=== PATIENT | male | born 1930 | race Caucasian/White ===

== ENCOUNTER 2019-09-09 15:35 | Inpatient (IN) | payer MEDICARE ==
--- NOTE | 2019-09-09 16:00 | ED ---
General Adult HPI - General Source: RN notes reviewed <Timbo Uriostegui - Last Filed: 09/09/19 17:37> <Cristobal Brower - Last Filed: 09/09/19 22:16> - General Stated complaint: general weakness Time Seen by Provider: 09/09/19 15:36 - History of Present Illness Initial comments: 88-year-old male presents to the emergency department for a chief complaint of generalized weakness. Family members are at bedside and are giving additional history. Apparently over the past 2 weeks or so patient has had increase in falls. He has fallen 5 times in the past couple weeks. Patient states that he believes this is because of the swelling in his legs. States over the past several weeks the swelling has worsened. He denies any shortness of breath or chest pain associated with this. Feeling of her states that the goal is to improve the swelling and patient's legs so that he can have outpatient physical therapy. Family states that patient has not left his house and 2 months because he is unable to walk up and down the set of 15 stairs leading to his apartment.Patient has no other complaints at this time including shortness of breath, chest pain, abdominal pain, nausea or vomiting, headache, or visual changes. (Timbo Uriostegui) - Related Data Home Medications Medication Instructions Recorded Confirmed Furosemide [Lasix] 40 mg PO DAILY 09/09/19 09/09/19 Macular Vitamin [id number] 1 tab PO DAILY 09/09/19 09/09/19 Tablet Metoprolol Tartrate [Lopressor] 12.5 mg PO DAILY 09/09/19 09/09/19 Multivitamins, Thera [Multivitamin 1 tab PO DAILY 09/09/19 09/09/19 (formulary)] Potassium Chloride ER [K-Dur 10] 10 meq PO DAILY 09/09/19 09/09/19 Rivaroxaban [Xarelto] 15 mg PO W/SUPPER 09/09/19 09/09/19 Tamsulosin [Flomax] 0.4 mg PO HS 09/09/19 09/09/19 Viactiv [id number] 2 tab PO BID 09/09/19 09/09/19 Chewable Tablet Allergies Allergy/AdvReac Type Severity Reaction Status Date / Time No Known Allergies Allergy Verified 09/09/19 21:58 Review of Systems ROS Other: All systems not noted in ROS Statement are negative. <Timbo Uriostegui - Last Filed: 09/09/19 17:37> ROS Other: All systems not noted in ROS Statement are negative. <Cristobal Brower - Last Filed: 09/09/19 22:16> ROS Statement: Those systems with pertinent positive or pertinent negative responses have been documented in the HPI. General Exam General appearance: alert, in no apparent distress Head exam: Present: atraumatic, normocephalic, normal inspection Eye exam: Present: normal appearance, PERRL, EOMI. Absent: scleral icterus, conjunctival injection, periorbital swelling ENT exam: Present: normal exam, mucous membranes moist Neck exam: Present: normal inspection, full ROM. Absent: tenderness, meningismus, lymphadenopathy Respiratory exam: Present: normal lung sounds bilaterally. Absent: respiratory distress, wheezes, rales, rhonchi, stridor Cardiovascular Exam: Present: regular rate, normal rhythm, normal heart sounds. Absent: systolic murmur, diastolic murmur, rubs, gallop, clicks GI/Abdominal exam: Present: soft, normal bowel sounds. Absent: distended, tenderness, guarding, rebound, rigid Extremities exam: Present: pedal edema (Pitting edema noted of the bilateral lower extremities, no erythema or evidence for infection) Neurological exam: Present: alert, oriented X3, CN II-XII intact Psychiatric exam: Present: normal affect, normal mood <Timbo Uriostegui P - Last Filed: 09/09/19 17:37> Course <Cristobal Brower - Last Filed: 09/09/19 22:16> Vital Signs 09/09/19 09/09/19 09/09/19 15:50 16:58 17:15 Temperature 98.7 F 98.1 F Pulse Rate 65 62 77 Respiratory 20 14 19 Rate Blood Pressure 131/65 126/71 131/65 O2 Sat by Pulse 99 97 Oximetry 09/09/19 09/09/19 09/09/19 18:30 20:00 21:00 Temperature 98.4 F Pulse Rate 79 72 92 Respiratory 18 17 17 Rate Blood Pressure 130/63 138/71 140/75 O2 Sat by Pulse 99 98 98 Oximetry - Reevaluation(s) Reevaluation #1: 09/09/19 22:14 The patient was endorsed me at shift change. Pending labs and imaging. Imaging showed evidence of cardiomegaly 09/09/19 22:15 Showed evidence of dehydration. (Cristobal Brower) Reevaluation #2: 09/09/19 22:15 I did discuss findings with the patient and family members as well as Dr. morley are patient be admitted for evaluation of peripheral edema frequent falls [place] thrive (Cristobal Brower) EKG Findings - EKG Comments: EKG Findings:: Atrial fibrillation, ventricular rate 76, QRS ratio 144, QTC 492 <Timbo Uriostegui - Last Filed: 09/09/19 17:37> Medical Decision Making - Lab Data Result diagrams: 09/09/19 17:19 <Timbo Uriostegui - Last Filed: 09/09/19 17:37> - Lab Data Result diagrams: 09/09/19 17:19 09/09/19 17:19 <Cristobal Brower - Last Filed: 09/09/19 22:16> - Medical Decision Making EKG shows atrial fibrillation with a ventricular rate controlled at 76. Patient is anticoagulated on Xarelto and rate controlled on metoprolol. Chest x-ray shows new cardiac enlargement in comparison to the prior chest x-ray 2010. Urinalysis is unremarkable. I did attempt to ambulate patient. He is very weak. Requires a 2+ person assist to get out of bed. Fall Risk. Care was signed out to Dr. Brower at 5:30 PM pending laboratory evaluation as there was a delay in patient care obtaining blood draw. (Timbo Uriostegui) - Lab Data Lab Results 09/09/19 09/09/19 09/09/19 Range/Units 16:29 17:19 17:19 WBC 6.5 (3.8-10.6) k/uL RBC 4.04 L (4.30-5.90) m/uL Hgb 12.5 L (13.0-17.5) gm/dL Hct 37.1 L (39.0-53.0) % MCV 91.8 (80.0-100.0) fL MCH 31.1 (25.0-35.0) pg MCHC 33.8 (31.0-37.0) g/dL RDW 13.9 (11.5-15.5) % Plt Count 158 (150-450) k/uL Neutrophils % 62 % Lymphocytes % 27 % Monocytes % 6 % Eosinophils % 3 % Basophils % 0 % Neutrophils # 4.0 (1.3-7.7) k/uL Lymphocytes # 1.8 (1.0-4.8) k/uL Monocytes # 0.4 (0-1.0) k/uL Eosinophils # 0.2 (0-0.7) k/uL Basophils # 0.0 (0-0.2) k/uL PT (9.0-12.0) sec INR (<1.2) APTT (22.0-30.0) sec Sodium 132 L (137-145) mmol/L Potassium 4.6 (3.5-5.1) mmol/L Chloride 97 L (98-107) mmol/L Carbon Dioxide 27 (22-30) mmol/L Anion Gap 8 mmol/L BUN 23 H (9-20) mg/dL Creatinine 1.05 (0.66-1.25) mg/dL Est GFR (CKD-EPI)AfAm 73 (>60 ml/min/1.73 sqM) Est GFR (CKD-EPI)NonAf 64 (>60 ml/min/1.73 sqM) Glucose 104 H (74-99) mg/dL Plasma Lactic Acid Raffaele (0.7-2.0) mmol/L Calcium 10.1 (8.4-10.2) mg/dL Magnesium 1.8 (1.6-2.3) mg/dL Total Bilirubin 0.6 (0.2-1.3) mg/dL AST 21 (17-59) U/L ALT 13 L (21-72) U/L Alkaline Phosphatase 59 (38-126) U/L Troponin I (0.000-0.034) ng/mL NT-Pro-B Natriuret Pep pg/mL Total Protein 7.4 (6.3-8.2) g/dL Albumin 4.3 (3.5-5.0) g/dL TSH 3.220 (0.465-4.680) mIU/L Urine Color Light Yellow Urine Appearance Clear (Clear) Urine pH 7.0 (5.0-8.0) Ur Specific [place] 1.008 (1.001-1.035) Urine Protein Negative (Negative) Urine Glucose (UA) Negative (Negative) Urine Ketones Negative (Negative) Urine Blood Negative (Negative) Urine Nitrite Negative (Negative) Urine Bilirubin Negative (Negative) Urine Urobilinogen <2.0 (<2.0) mg/dL Ur Leukocyte Esterase Negative (Negative) 09/09/19 09/09/19 09/09/19 Range/Units 17:19 17:19 17:19 WBC (3.8-10.6) k/uL RBC (4.30-5.90) m/uL Hgb (13.0-17.5) gm/dL Hct (39.0-53.0) % MCV (80.0-100.0) fL MCH (25.0-35.0) pg MCHC (31.0-37.0) g/dL RDW (11.5-15.5) % Plt Count (150-450) k/uL Neutrophils % % Lymphocytes % % Monocytes % % Eosinophils % % Basophils % % Neutrophils # (1.3-7.7) k/uL Lymphocytes # (1.0-4.8) k/uL Monocytes # (0-1.0) k/uL Eosinophils # (0-0.7) k/uL Basophils # (0-0.2) k/uL PT 11.0 (9.0-12.0) sec INR 1.0 (<1.2) APTT 28.5 (22.0-30.0) sec Sodium (137-145) mmol/L Potassium (3.5-5.1) mmol/L Chloride (98-107) mmol/L Carbon Dioxide (22-30) mmol/L Anion Gap mmol/L BUN (9-20) mg/dL Creatinine (0.66-1.25) mg/dL Est GFR (CKD-EPI)AfAm (>60 ml/min/1.73 sqM) Est GFR (CKD-EPI)NonAf (>60 ml/min/1.73 sqM) Glucose (74-99) mg/dL Plasma Lactic Acid Raffaele 1.1 (0.7-2.0) mmol/L Calcium (8.4-10.2) mg/dL Magnesium (1.6-2.3) mg/dL Total Bilirubin (0.2-1.3) mg/dL AST (17-59) U/L ALT (21-72) U/L Alkaline Phosphatase (38-126) U/L Troponin I (0.000-0.034) ng/mL NT-Pro-B Natriuret Pep 1270 pg/mL Total Protein (6.3-8.2) g/dL Albumin (3.5-5.0) g/dL TSH (0.465-4.680) mIU/L Urine Color Urine Appearance (Clear) Urine pH (5.0-8.0) Ur Specific [place] (1.001-1.035) Urine Protein (Negative) Urine Glucose (UA) (Negative) Urine Ketones (Negative) Urine Blood (Negative) Urine Nitrite (Negative) Urine Bilirubin (Negative) Urine Urobilinogen (<2.0) mg/dL Ur Leukocyte Esterase (Negative) 09/09/19 Range/Units 17:19 WBC (3.8-10.6) k/uL RBC (4.30-5.90) m/uL Hgb (13.0-17.5) gm/dL Hct (39.0-53.0) % MCV (80.0-100.0) fL MCH (25.0-35.0) pg MCHC (31.0-37.0) g/dL RDW (11.5-15.5) % Plt Count (150-450) k/uL Neutrophils % % Lymphocytes % % Monocytes % % Eosinophils % % Basophils % % Neutrophils # (1.3-7.7) k/uL Lymphocytes # (1.0-4.8) k/uL Monocytes # (0-1.0) k/uL Eosinophils # (0-0.7) k/uL Basophils # (0-0.2) k/uL PT (9.0-12.0) sec INR (<1.2) APTT (22.0-30.0) sec Sodium (137-145) mmol/L Potassium (3.5-5.1) mmol/L Chloride (98-107) mmol/L Carbon Dioxide (22-30) mmol/L Anion Gap mmol/L BUN (9-20) mg/dL Creatinine (0.66-1.25) mg/dL Est GFR (CKD-EPI)AfAm (>60 ml/min/1.73 sqM) Est GFR (CKD-EPI)NonAf (>60 ml/min/1.73 sqM) Glucose (74-99) mg/dL Plasma Lactic Acid Raffaele (0.7-2.0) mmol/L Calcium (8.4-10.2) mg/dL Magnesium (1.6-2.3) mg/dL Total Bilirubin (0.2-1.3) mg/dL AST (17-59) U/L ALT (21-72) U/L Alkaline Phosphatase (38-126) U/L Troponin I 0.027 (0.000-0.034) ng/mL NT-Pro-B Natriuret Pep pg/mL Total Protein (6.3-8.2) g/dL Albumin (3.5-5.0) g/dL TSH (0.465-4.680) mIU/L Urine Color Urine Appearance (Clear) Urine pH (5.0-8.0) Ur Specific [place] (1.001-1.035) Urine Protein (Negative) Urine Glucose (UA) (Negative) Urine Ketones (Negative) Urine Blood (Negative) Urine Nitrite (Negative) Urine Bilirubin (Negative) Urine Urobilinogen (<2.0) mg/dL Ur Leukocyte Esterase (Negative) Disposition <Timbo Uriostegui - Last Filed: 09/09/19 17:37> <Cristobal Brower - Last Filed: 09/09/19 22:16> Clinical Impression: Frequent falls, Scalp hematoma, Failure to thrive in adult, Peripheral edema Disposition: ADMITTED IP TO THIS HOSP Condition: Fair Referrals: Eloise Ozuna MD [Primary Care Provider] - 1-2 days
[2019-09-09 16:48] LABS: Appearance,Urine Clear (Clear); Bilirubin,Urine Negative (Negative); Blood,Urine Negative (Negative); Color,Urine Light Yellow; Glucose,Urine (UA) Negative (Negative); Ketones,Urine Negative (Negative); Leukocyte Esterase,Urine Negative (Negative); Nitrite,Urine Negative (Negative); Protein,Urine Negative (Negative); Specific Gravity,Urine 1.008 (1.001-1.035); Urobilinogen,Urine <2.0 mg/dL (<2.0)
--- NOTE | 2019-09-09 17:05 | XR ---
EXAMINATION TYPE: XR chest 2V DATE OF EXAM: 09/09/2019 COMPARISON: 07/17/2011 HISTORY: Weakness and lower extremity edema TECHNIQUE: Frontal and lateral views of the chest are obtained. FINDINGS: There is no focal air space opacity, pleural effusion, or pneumothorax seen. Pulmonary per inflation with flattening of the diaphragms on the lateral view indicative of underlying COPD. The c ardiac silhouette size is enlarged, new from the prior 2010. Tortuosity of the descending thoracic ao rta is similar. The osseous structures are intact. Moderate multilevel degenerative change of the sp ine. IMPRESSION: 1. New cardiac enlargement in comparison to the prior of 2010. Echocardiogram could be considered. 2. COPD.
[2019-09-09 17:35] LABS: Basophils % (A) 0 %; Eosinophils # (A) 0.2 k/uL (0-0.7); Eosinophils % (A) 3 %; HCT 37.1 % (39.0-53.0); HGB 12.5 gm/dL (13.0-17.5); Lymphocytes # (A) 1.8 k/uL (1.0-4.8); Lymphocytes % (A) 27 %; MCH 31.1 pg (25.0-35.0); MCHC 33.8 g/dL (31.0-37.0); MCV 91.8 fL (80.0-100.0); Mean Platelet Volume 8.1; Monocytes # (A) 0.4 k/uL (0-1.0); Monocytes % (A) 6 %; Neutrophils % (A) 62 %; Platelet Count 158 k/uL (150-450); RBC 4.04 m/uL (4.30-5.90); RDW 13.9 % (11.5-15.5); WBC 6.5 k/uL (3.8-10.6)
[2019-09-09 17:45] LABS: Partial Thromboplastin Time 28.5 sec (22.0-30.0)
[2019-09-09 17:53] LABS: Albumin 4.3 g/dL (3.5-5.0); Calcium 10.1 mg/dL (8.4-10.2); Magnesium 1.8 mg/dL (1.6-2.3); Potassium 4.6 mmol/L (3.5-5.1); Total Bilirubin 0.6 mg/dL (0.2-1.3); Total Protein 7.4 g/dL (6.3-8.2)
--- NOTE | 2019-09-09 22:26 | CT ---
EXAMINATION TYPE: CT brain wo con DATE OF EXAM: 09/09/2019 COMPARISON: None HISTORY: fall, ams, weakness CT DLP: 1105.4 mGycm Automated exposure control for dose reduction was used. There is some effacement and mass effect upon the left lateral ventricle. There is destructive change s involving the left parietal bone with subcutaneous mass extension outside of the skull as well as a pparent mass extension into the brain. This could be a metastatic lesion of the skull with intracrani al and extracranial extension. There is diffuse atrophy. There is some apparent vasogenic edema around the left lateral ventricle wh ich is effaced. The cerebellum is intact. I see no sign of intracranial hemorrhage. 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 Mass extension in the left parietal lobe measures up to 2 cm in thickness. The extracranial mass ext ension is 2.5 cm in thickness. Contrast CT scan or MR scan would be helpful for further evaluation to better characterize the lesion. Exam was discussed with Dr. Brower at 11:20 PM.
[2019-09-09] MEDS ORDERED: HYDROmorphone 1 MG/ML 1 ML SYRINGE IVP STA (23:56)
[2019-09-09] MEDS ORDERED: HYDROmorphone 0.5 MG/0.5 ML SYRINGE IVP PRN (23:57)
[2019-09-09] MEDS ORDERED: ONDANSETRON 4 MG/2 ML VIAL IVP PRN (23:57)
[2019-09-09] MEDS ORDERED: NALOXONE 0.4 MG/ML 1 ML VIAL IV PRN (23:57)
[2019-09-10] MEDS: SODIUM CHLORIDE 0.9% 1,000 ML IV SCH ×2 (00:34→12:26)
[2019-09-10] MEDS: MULTIVITAMINS, THERA 1 EACH TAB PO SCH (07:22)
[2019-09-10] MEDS: POTASSIUM CHLORIDE ER 10 MEQ TAB.ER.PRT PO SCH (07:22)
[2019-09-10] MEDS: METOPROLOL TARTRATE 12.5 MG TAB PO SCH (07:22)
[2019-09-10] MEDS: FUROSEMIDE 40 MG TAB PO SCH (07:22)
[2019-09-10] MEDS: VIT A,C & E-LUTEIN-MINERALS 1 EACH TAB PO SCH (07:22)
--- NOTE | 2019-09-10 07:48 | P.HPIM ---
History of Present Illness H&P Date: 09/10/19 Chief Complaint: Weakness and multiple falls Grayson Landry is an 88-year-old male who presented to [facility] emergency room with a chief complaint of weakness and multiple falls, he states that he had fallen 5 times in the last 2 weeks, EMS had to be called repeatedly because he was unable to get up and his was unable to help him, patient was also having difficulty getting in and out of his apartment due to having to go up 15 stairs, he noticed that he started having lower extremity swelling in the last few weeks , yesterday his son was visiting him and he was worried about his condition and decided to send him to emergency room for evaluation. Patient was evaluated in the emergency room, chest x-ray revealed evidence of cardiac enlargement which is new from previous evaluation, patient has a lump on the left side of the back of his head which she related to falling and hitting his head in the past however computed tomography scan of the brain was done in the emergency room and revealed evidence of mass with bony destruction. Patient was admitted to medical floor for further evaluation and treatment. On review of systems: Patient is alert and oriented 3, answering questions appropriately There is no fever or chills, he denies any headache or dizziness There is no chest pain or shortness of breath no cough, no hemoptysis No nausea or vomiting no abdominal pain no diarrhea no blood in the stools No burning with urination no frequency or urgency no hematuria Patient is complaining of generalized weakness and multiple falls, and difficulty ambulating and going upstairs, however he denies any weakness or numbness in one of his extremities more than the other, he denies any change in his vision or his speech. Past Medical History Past Medical History: Atrial Fibrillation, Prostate Disorder, Skin Disorder Additional Past Medical History / Comment(s): BPH; CARDIAC DYSRHTYMIA NOS; CERVICAL RADICULOPATHY; ROSACEA; BENIGN ESSENTIAL HYPERTENSION; ATRIAL FIBRILL ATION; MICROSCOPIC HEMATURIA; SEE CHART REPORT FROM [facility]. History of Any Multi-Drug Resistant Organisms: None Reported Past Surgical History: Orthopedic Surgery Additional Past Surgical History / Comment(s): left ankle fx repair, cataract removal Past Anesthesia/Blood Transfusion Reactions: No Reported Reaction Past Psychological History: No Psychological Hx Reported Smoking Status: Never smoker Past Alcohol Use History: None Reported Past Drug Use History: None Reported - Past Family History Father Family Medical History: Prostate Disorder Additional Family Medical History / Comment(s): MALIGNANT TUMOR OF PROSTATE Mother Family Medical History: Diabetes Mellitus Additional Family Medical History / Comment(s): DM II Medications and Allergies Home Medications Medication Instructions Recorded Confirmed Type Furosemide [Lasix] 40 mg PO DAILY 09/09/19 09/09/19 History Macular Vitamin [id number] 1 tab PO DAILY 09/09/19 09/09/19 History Tablet Metoprolol Tartrate [Lopressor] 12.5 mg PO DAILY 09/09/19 09/09/19 History Multivitamins, Thera [Multivitamin 1 tab PO DAILY 09/09/19 09/09/19 History (formulary)] Potassium Chloride ER [K-Dur 10] 10 meq PO DAILY 09/09/19 09/09/19 History Rivaroxaban [Xarelto] 15 mg PO W/SUPPER 09/09/19 09/09/19 History Tamsulosin [Flomax] 0.4 mg PO HS 09/09/19 09/09/19 History Viactiv [id number] 2 tab PO BID 09/09/19 09/09/19 History Chewable Tablet Allergies Allergy/AdvReac Type Severity Reaction Status Date / Time No Known Allergies Allergy Verified 09/09/19 21:58 Physical Exam Vitals: Vital Signs Temp Pulse Pulse Resp BP BP Pulse Ox 09/10/19 01:58 97.4 F L 65 17 118/60 96 09/10/19 01:03 16 09/10/19 00:30 98.6 F 71 18 136/67 94 L 09/10/19 00:00 98.6 F 71 18 136/67 94 L 09/09/19 23:00 98.2 F 68 18 136/67 97 09/09/19 22:00 91 15 140/75 99 09/09/19 21:00 98.4 F 92 17 140/75 98 09/09/19 20:00 72 17 138/71 98 09/09/19 18:30 79 18 130/63 99 09/09/19 17:15 98.1 F 77 19 131/65 97 09/09/19 16:58 62 14 126/71 09/09/19 15:50 98.7 F 65 20 131/65 99 Intake and Output 09/09/19 09/10/19 09/10/19 22:59 06:59 14:59 Intake Total 50 Output Total 400 Balance -350 Intake: Amount of Fluid Infused ( 50 ml) Output: Urine 400 Other: # Voids 1 Weight 113.398 kg 113.4 kg In general patient is alert and oriented 3 in no apparent distress answering questions appropriately HEENT head normocephalic and atraumatic Neck is supple no JVD no goiter no lymphadenopathy Chest exam reveals a few scattered rhonchi no wheezing Cardiac exam reveals regular heart sounds S1 and S2 no gallops no murmurs Abdomen is soft nontender no hepatosplenomegaly with normal bowel sounds Extremity exam reveals 1+ edema bilaterally no cyanosis or clubbing Neurological examination reveals generalized weakness but no gross focal deficit Results CBC & Chem 7: 09/09/19 17:19 09/09/19 17:19 Labs: Abnormal Lab Results - Last 24 Hours (Table) 09/09/19 09/09/19 Range/Units 17:19 17:19 RBC 4.04 L (4.30-5.90) m/uL Hgb 12.5 L (13.0-17.5) gm/dL Hct 37.1 L (39.0-53.0) % Sodium 132 L (137-145) mmol/L Chloride 97 L (98-107) mmol/L BUN 23 H (9-20) mg/dL Glucose 104 H (74-99) mg/dL ALT 13 L (21-72) U/L Thrombosis Risk Factor Assmnt - Choose All That Apply Any of the Below Risk Factors Present?: Yes Each Factor Represents 1 point: Obesity (BMI >25), Swollen legs (current) Other Risk Factors: No Other congenital or acquired thrombophilia - If yes, enter type in comment: No Thrombosis Risk Factor Assessment Total Risk Factor Score: 2 Thrombosis Risk Factor Assessment Level: Low Risk Assessment and Plan Plan: #1 generalized weakness with multiple falls #2 evidence of mild dehydration with elevated BUN at 23 and creatinine at 1.05 #3 evidence of 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 #4 evidence of cardiomegaly on chest x-ray, which is new from before, BNP was mildly elevated at 1270 patient states that he started having lower extremity swelling in the last few weeks at this time will check echocardiogram, continue with oral Lasix. #5 underlying history of atrial fibrillation, heart rate is well-controlled on metoprolol, patient was maintained on Xarelto for stroke prevention, at this time Xarelto is on hold due to multiple falls and due to intracranial finding, will reassess restarting anticoagulation once the clinical picture is clear. #6 underlying history of benign prostatic hypertrophy maintained on Flomax continue. At this time patient is admitted to medical floor Will obtain echocardiogram to assess cardiac function and optimize cardiac medications Neurology consultation and oncology consultation requested in regard to intracranial and extracranial mass Will assess need for further imaging, will follow closely Prognosis is guarded due to clinical findings and advanced age.
[2019-09-10] MEDS: DEXAMETHASONE SOD PHOSPHATE 4 MG/ML 1 ML VIAL IV SCH ×2 (11:25→16:23)
[2019-09-10] MEDS: IOPAMIDOL CONTRAST (ORAL USE) VIAL PO PRN ×2 (12:26→12:55)
--- NOTE | 2019-09-10 14:12 | NM ---
EXAMINATION TYPE: NM bone scan whole body DATE OF EXAM: 09/10/2019 COMPARISON: CT brain dated 09/09/2019 HISTORY: Left scalp lesion Delayed whole-body scanning was performed following the injection of 20.1 mCi Tc 99m MDP. Images acq uired 3.5 hours post injection. FINDINGS: There is focal uptake of the destructive left parietal mass as seen on the prior CT of 09/09/2019 as well as within the lateral right 7th rib and posterior left 11th rib. Degenerative change of the shoulders, knees, ankles, and spine as well as sacroiliac joints are seen as mild diffuse overall symmetric uptake. IMPRESSION: 1. The destructive left parietal mass seen on the prior CT of 09/09/2019 has abnormal uptake on bone scan. 2. Abnormal radiotracer foci within the lateral right 7th rib and posterior left 11th rib. These are nonspecific and could relate to focal lesions or rib fractures. No discrete rib fracture seen on the prior chest x-ray. CT chest could further assess this finding.
--- NOTE | 2019-09-10 15:01 | CT ---
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 CT DLP: 2460.1 mGycm CONTRAST: CT scan of the chest, abdomen and pelvis is performed with Oral Contrast and with IV Contrast, patien t injected with 100 mL of Isovue 300. CT Chest: LUNGS: The lungs are clear and free of infiltrate or atelectasis. Mild basilar parenchymal scarring. No pulmonary nodule or mass is detected. No pleural effusion or CT evidence of interstitial lung di sease. MEDIASTINUM: Thoracic aorta is of normal caliber. The heart is enlarged. No evidence for mediastin al mass or adenopathy. HILAR STRUCTURES: No evidence for mass. No hilar adenopathy is appreciated. OTHER: No significant abnormality. CONTRAST CT ABDOMEN AND PELVIS FINDINGS: LIVER/GB: No calcified gallstones. No space occupying hepatic lesion. Biliary tree is of normal ca liber. PANCREAS: No inflammation. No distinct mass. SPLEEN: No splenic enlargement. No lesion seen. Splenic granulomas identified. ADRENALS: No nodule. No thickening. KIDNEYS/BLADDER: No hydronephrosis. No nephrolithiasis. Simple cyst posterior midpole right kidney measuring 3.3 cm. No solid renal lesions identified at this time. BOWEL: Normal appendix. Normal bowel caliber. No inflammation. GENITAL ORGANS: Prostate gland is enlarged and measures 7.4 x 7.8 cm. LYMPH NODES: No greater than 1cm abdominal or pelvic lymph nodes are appreciated. AORTA: No significant abnormality. OSSEOUS STRUCTURES: Severe degenerative change at multiple levels. OTHER: No significant additional abnormality is seen. IMPRESSION: 1. No evidence for primary malignancy within the chest abdomen or pelvis at this time.
--- NOTE | 2019-09-10 16:10 | ECHOF ---
Referral Reason:cardiomegaly, lower ext. edema MEASUREMENTS -------- HEIGHT: 180.3 cm WEIGHT: 113.4 kg BP: RVIDd: 3.1 cm (< 3.3) IVSd: 1.3 cm (0.6 - 1.1) LVIDd: 5.0 cm (3.9 - 5.3) LVPWd: 1.4 cm (0.6 - 1.1) IVSs: 1.9 cm LVIDs: 3.9 cm LVPWs: 1.3 cm LAESV Index (A-L): 23.86 ml/m Ao Diam: 3.6 cm (2.0 - 3.7) AV Cusp: 2.5 cm (1.5 - 2.6) LA Diam: 4.1 cm (2.7 - 3.8) MV EXCURSION: 17.701 mm (> 18.000) MV EF SLOPE: 61 mm/s (70 - 150) EPSS: 0.7 cm RAP: 15.00 mmHg RVSP: 24.73 mmHg FINDINGS -------- Atrial fibrillation. This was a technically adequate study. The left ventricular size is normal. There is mild concentric left ventricular hypertrophy. Overa ll left ventricular systolic function is low-normal with, an EF between 50 - 55 %. Left ventricular fillimg pressure cannot be estimated due to Atrial fibrillation. The right ventricle is normal in size. The left atrial size is normal. The right atrial size is normal. The aortic valve is trileaflet and appears structurally normal. There is mild aortic regurgitation. The mitral valve is normal. There is trace mitral regurgitation. The tricuspid valve appears structurally normal. Mild tricuspid regurgitation present. Right vent ricular systolic pressure is normal at < 35 mmHg. There is no pulmonic regurgitation present. The aortic root size is normal. The inferior vena cava is mildly dilated. There is no pericardial effusion. CONCLUSIONS -------- 1. Atrial fibrillation. 2. This was a technically adequate study. 3. The left ventricular size is normal. 4. There is mild concentric left ventricular hypertrophy. 5. Overall left ventricular systolic function is low-normal with, an EF between 50 - 55 %. 6. Left ventricular fillimg pressure cannot be estimated due to Atrial fibrillation. 7. The right ventricle is normal in size. 8. The left atrial size is normal. 9. The right atrial size is normal. 10. The aortic valve is trileaflet and appears structurally normal. 11. There is mild aortic regurgitation. 12. The mitral valve is normal. 13. There is trace mitral regurgitation. 14. The tricuspid valve appears structurally normal. 15. Mild tricuspid regurgitation present. 16. Right ventricular systolic pressure is normal at < 35 mmHg. 17. There is no pulmonic regurgitation present. 18. The aortic root size is normal. 19. The inferior vena cava is mildly dilated. 20. There is no pericardial effusion. LAY OUT TECHNICIAN: Gertrude Colon RDCS
--- NOTE | 2019-09-10 16:51 | P.CNNES ---
History of Present Illness Consult date: 09/10/19 Requesting physician: Eloise Ozuna Reason for Consult: Brain mass History of Present Illness: Patient is a 88-year-old male who states has always been very healthy, until 2-3 weeks ago, when he started noticing significant peripheral edema involving bilateral lower limbs. He was also feeling generalized weakness, difficulty with ambulation as a result of leg swelling. His son decided to bring him to the hospital. Patient also mentions that he has developed a lump on the left posterior side of his head, which has been growing slowly, since it was noticed first couple years ago. He states that he has suffered from multiple, minor head injuries in the past, while getting in and out of his car, and presumed it was from the head trauma. Patient has atrial fibrillation and is on Xarelto. Patient underwent chest x-ray, which revealed new cardiac enlargement in comparison to the prior chest x-ray from 2010. COPD. Computed tomography scan of the head showed intracranial and extracranial mass extension with associated distractive lesion of the left parietal bone. I would consider possibility of a malignant meningioma as well as osseous metastatic disease. Mass extension in the left parietal lobe measuring up to 2 cm in thickness. The extracranial mass extension is 2.5 cm in thickness. Contrast computed tomography scan or MRI scan would be helpful for further evaluation to better characterize the lesion. Patient had a 2-D echo, which revealed atrial fibrillation. Left-ventricular systolic function is low normal with EF 50-55%. Left atrial size is normal. Aortic root is normal. EKG showed atrial fibrillation with right bundle branch block. Patient had a bone scan, which revealed the distractive left parietal mass seen on the prior CT of 09/09/2019 has abnormal uptake on bone scan. Ab normal radiotracer foci within the lateral right seventh rib and posterior left 11th rib. These are nonspecific and could relate to focal lesions or fractures. No discrete refracture seen on prior chest x-ray. CT chest could further assess this finding. Patient had a computed tomography scan of chest abdomen and pelvis, which was negative for primary malignancy within the chest abdomen or pelvis. Past Medical History Past Medical History: Atrial Fibrillation, Prostate Disorder, Skin Disorder Additional Past Medical History / Comment(s): BPH; CARDIAC DYSRHTYMIA NOS; CERVICAL RADICULOPATHY; ROSACEA; BENIGN ESSENTIAL HYPERTENSION; ATRIAL FIBRILLATION; MICROSCOPIC HEMATURIA; SEE CHART REPORT FROM [facility]. History of Any Multi-Drug Resistant Organisms: None Reported Past Surgical History: Orthopedic Surgery Additional Past Surgical History / Comment(s): left ankle fx repair, cataract removal Past Anesthesia/Blood Transfusion Reactions: No Reported Reaction Past Psychological History: No Psychological Hx Reported Smoking Status: Never smoker Past Alcohol Use History: None Reported Past Drug Use History: None Reported - Past Family History Father Family Medical History: Prostate Disorder Additional Family Medical History / Comment(s): MALIGNANT TUMOR OF PROSTATE Mother Family Medical History: Diabetes Mellitus Additional Family Medical History / Comment(s): DM II Medications and Allergies Home Medications Medication Instructions Recorded Confirmed Type Furosemide [Lasix] 40 mg PO DAILY 09/09/19 09/09/19 History Macular Vitamin [id number] 1 tab PO DAILY 09/09/19 09/09/19 History Tablet Metoprolol Tartrate [Lopressor] 12.5 mg PO DAILY 09/09/19 09/09/19 History Multivitamins, Thera [Multivitamin 1 tab PO DAILY 09/09/19 09/09/19 History (formulary)] Potassium Chloride ER [K-Dur 10] 10 meq PO DAILY 09/09/19 09/09/19 History Rivaroxaban [Xarelto] 15 mg PO W/SUPPER 09/09/19 09/09/19 History Tamsulosin [Flomax] 0.4 mg PO HS 09/09/19 09/09/19 History Viactiv [id number] 2 tab PO BID 09/09/19 09/09/19 History Chewable Tablet Allergies Allergy/AdvReac Type Severity Reaction Status Date / Time No Known Allergies Allergy Verified 09/09/19 21:58 Physical Examination - Vital Signs Vital Signs: Vital Signs Temp Pulse Pulse Pulse Resp BP BP 09/10/19 15:00 97.6 F 94 17 123/78 09/10/19 14:45 90 16 132/74 09/10/19 14:30 92 16 127/80 09/10/19 14:15 90 16 143/74 09/10/19 08:00 90 09/10/19 07:00 95.9 F L 90 18 153/74 09/10/19 01:58 97.4 F L 65 17 118/60 09/10/19 01:03 16 09/10/19 00:30 98.6 F 71 18 136/67 09/10/19 00:00 98.6 F 71 18 136/67 09/09/19 23:00 98.2 F 68 18 136/67 09/09/19 22:00 91 15 140/75 09/09/19 21:00 98.4 F 92 17 140/75 09/09/19 20:00 72 17 138/71 09/09/19 18:30 79 18 130/63 09/09/19 17:15 98.1 F 77 19 131/65 09/09/19 16:58 62 14 126/71 Pulse Ox 09/10/19 15:00 99 09/10/19 14:45 99 09/10/19 14:30 99 09/10/19 14:15 98 09/10/19 08:00 09/10/19 07:00 99 09/10/19 01:58 96 09/10/19 01:03 09/10/19 00:30 94 L 09/10/19 00:00 94 L 09/09/19 23:00 97 09/09/19 22:00 99 09/09/19 21:00 98 09/09/19 20:00 98 09/09/19 18:30 99 09/09/19 17:15 97 09/09/19 16:58 Intake and Output 09/10/19 09/10/19 09/10/19 06:59 14:59 22:59 Intake Total 50 354 Output Total 400 710 Balance -350 -356 Intake: Amount of Fluid Infused ( 50 ml) Oral 354 Output: Urine 400 710 Other: # Voids 1 3 Weight 113.4 kg On examination patient is an elderly male, very pleasant, in no distress. Patient is alert and awake. Patient knows that he is in [facility] in [facility]. He states that he was born in [facility]. He knows name of the current president although thinks it is March and the year is "97". He states that he is 89 years of age. Speech and language functions are normal. He can name objects well, can repeat. Attention and concentration fund of knowledge is adequate. On cranial nerve examination pupils are small, round and barely reacting. Extraocular muscles are intact with no nystagmus. Patient has right visual field neglect/cut on double simultaneous stimulation. Face is symmetric and tongue protrudes the midline. On muscle strength testing patient has very mild right pronation. The strength appears normal in the arms and legs. Patient has very significant pitting type of peripheral edema. There is no ataxia for [id number]. Tone and bulk of muscles normal. Sensations are equal with no neglect on double simultaneous stimulation. Results UA negative for infection. - Laboratory Findings CBC and BMP: 09/09/19 17:19 12 17:19 Abnormal Lab Findings: Abnormal Labs 09/09/19 12 17:19 17:19 RBC 4.04 L Hgb 12.5 L Hct 37.1 L Sodium 132 L Chloride 97 L BUN 23 H Glucose 104 H ALT 13 L Assessment and Plan Assessment: * 88-year-old male admitted with left posterior parietal extracranial and intracranial (extra-axial) mass with bony destruction of the associated parietal bone, and compression of mass into the parietal lobe. Possibility include malignant meningioma versus myeloma. No evidence of metastatic disease noted on the CT of chest abdomen and pelvis. * Bilateral lower extremity edema. Plan: * Patient had undergone biopsy of the scalp lesion. * We will check an MRI of the brain with and without contrast for further evaluation of this lesion, and rule out any other smaller deposits, that may not be visible on the regular CT head. On my review of the computed tomography scan, appears extra-axial lesion pressing on the brain parenchyma, probably a meningioma. * Oncology consultation. * Agree with checking serum protein and immunofixation electrophoresis. * Patient probably will need neurosurgical consultation. * We will follow.
[2019-09-10 17:06] LABS: Protein, Total 6.7 g/dL (6.2-8.2)
[2019-09-10] MEDS: TAMSULOSIN 0.4 MG CAP.ER.24H PO SCH (19:56)
--- NOTE | 2019-09-10 22:48 | P.CONS ---
History of Present Illness - Reason for Consult Consult date: 09/10/19 Destructive scalp lesion. Falls - History of Present Illness The patient is an 88-year-old white male with overall well-controlled medical problems. The patient's family brought him in due to progressive weakness, difficulty walking and falls especially over the last 2-3 weeks. The patient also endorsed having problems with increased forgetfulness. He had a CT of the brain done in the emergency room revealing a left soft tissue scalp lesion involving the right occipital area, causing bony destruction with invasion into the cranium and mass effect on the adjacent brain tissue. Consult was therefore placed for further evaluation and recommendation The patient denied any history of cancer. He states that he has had a lump on his scalp in that area for at least a year but thinks it may have grown somewhat in size over the past few months. Review of Systems Constitutional: Reports weakness Eyes: denies blurred vision, denies pain Ears: deny: decreased hearing, ear discharge, earache, tinnitus Ears, nose, mouth and throat: Denies headache, Denies sore throat Cardiovascular: Denies chest pain, Denies shortness of breath Respiratory: Denies cough Gastrointestinal: Denies abdominal pain, Denies diarrhea, Denies nausea, Denies vomiting Genitourinary: Reports urinary frequency, Reports urinary hesitancy Musculoskeletal: Reports muscle weakness, Denies myalgias Integumentary: Reports lesions Neurological: Reports as per HPI, Reports gait dysfunction, Reports memory loss, Reports weakness Psychiatric: Reports difficulty concentrating Endocrine: Reports fatigue Hematologic/Lymphatic: Reports as per HPI Past Medical History Past Medical History: Atrial Fibrillation, Prostate Disorder, Skin Disorder Additional Past Medical History / Comment(s): BPH; CARDIAC DYSRHTYMIA NOS; CERVICAL RADICULOPATHY; ROSACEA; BENIGN ESSENTIAL HYPERTENSION; ATRIAL FIBRILLATION; MICROSCOPIC HEMATURIA; SEE CHART REPORT FROM [facility] OFFICE. History of Any Multi-Drug Resistant Organisms: None Reported Past Surgical History: Orthopedic Surgery Additional Past Surgical History / Comment(s): left ankle fx repair, cataract removal Past Anesthesia/Blood Transfusion Reactions: No Reported Reaction Past Psychological History: No Psychological Hx Reported Smoking Status: Never smoker Past Alcohol Use History: None Reported Past Drug Use History: None Reported - Past Family History Father Family Medical History: Prostate Disorder Additional Family Medical History / Comment(s): MALIGNANT TUMOR OF PROSTATE Mother Family Medical History: Diabetes Mellitus Additional Family Medical History / Comment(s): DM II Medications and Allergies Home Medications Medication Instructions Recorded Confirmed Type Furosemide [Lasix] 40 mg PO DAILY 09/09/19 09/09/19 History Macular Vitamin [id number] 1 tab PO DAILY 09/09/19 09/09/19 History Tablet Metoprolol Tartrate [Lopressor] 12.5 mg PO DAILY 09/09/19 09/09/19 History Multivitamins, Thera [Multivitamin 1 tab PO DAILY 09/09/19 09/09/19 History (formulary)] Potassium Chloride ER [K-Dur 10] 10 meq PO DAILY 09/09/19 09/09/19 History Rivaroxaban [Xarelto] 15 mg PO W/SUPPER 09/09/19 09/09/19 History Tamsulosin [Flomax] 0.4 mg PO HS 09/09/19 09/09/19 History Viactiv [id number] 2 tab PO BID 09/09/19 09/09/19 History Chewable Tablet Allergies Allergy/AdvReac Type Severity Reaction Status Date / Time No Known Allergies Allergy Verified 09/09/19 21:58 Physical Exam Vitals: Vital Signs Temp Pulse Pulse Pulse Resp BP BP 09/10/19 19:50 97.6 F 86 18 126/72 09/10/19 15:00 97.6 F 94 17 123/78 09/10/19 14:45 90 16 132/74 09/10/19 14:30 92 16 127/80 09/10/19 14:15 90 16 143/74 09/10/19 08:00 90 09/10/19 07:00 95.9 F L 90 18 153/74 09/10/19 01:58 97.4 F L 65 17 118/60 09/10/19 01:03 16 09/10/19 00:30 98.6 F 71 18 136/67 09/10/19 00:00 98.6 F 71 18 136/67 09/09/19 23:00 98.2 F 68 18 136/67 Pulse Ox 09/10/19 19:50 98 09/10/19 15:00 99 09/10/19 14:45 99 09/10/19 14:30 99 09/10/19 14:15 98 09/10/19 08:00 09/10/19 07:00 99 09/10/19 01:58 96 09/10/19 01:03 09/10/19 00:30 94 L 09/10/19 00:00 94 L 09/09/19 23:00 97 Intake and Output 09/10/19 09/10/19 09/10/19 06:59 14:59 22:59 Intake Total 50 354 Output Total 400 710 600 Balance -350 -356 -600 Intake: Amount of Fluid Infused ( 50 ml) Oral 354 Output: Urine 400 710 600 Other: # Voids 1 3 # Bowel Movements 1 Weight 113.4 kg - Constitutional General appearance: no acute distress - EENT Eyes: EOMI, PERRLA ENT: normal oropharynx - Neck Neck: no lymphadenopathy Thyroid: bilateral: normal size - Cardiovascular Rhythm: irregularly irregular Heart sounds: normal: S1, S2 - Gastrointestinal General gastrointestinal: normal bowel sounds, soft - Integumentary Large nodular lesion at least 5-6 cm in left parieto-occipital scalp area, for - Neurologic Neurologic: CNII-XII intact Results CBC & Chem 7: 09/09/19 17:19 09/09/19 17:19 Chest x-ray: report reviewed CT Scan - head: report reviewed Assessment and Plan (1) Mass of scalp Narrative/Plan: The consultbecause of the finding of a large scalp mass, that was penetrating into the skull wire destruction of the bone. This is likely the cause of his symptoms. Based on physical exam and CT findings this appears to represent a malignant process most likely. The results and implications were discussed in detail with the patient. He was advised that this could be a primary lesion, or a metastasis. He has no other associated signs or symptoms suggestive of a specific primary at this time. - Start steroids for mass effect of the brain - Check CT chest abdomen and pelvis, bone scan, as well as protein electrophoresis studies - Consult interventional radiology for biopsy of the brain mass - Consult radiation oncology to evaluate the patient. Once tissue diagnosis has been established he will need palliative radiation to the this area Current Visit: Yes Status: Acute Code(s): R22.0 - LOCALIZED SWELLING, MASS AND LUMP, HEAD SNOMED Code(s): 036122003 (2) Frequent falls Narrative/Plan: This is most likely due to mass effect on the brain causing edema from the scalp lesion. Steroids have been started, and radiation oncology consulted as noted above. Current Visit: Yes Status: Acute Code(s): R29.6 - REPEATED FALLS SNOMED Code(s): 457998684 Plan: Defer to the admitting service for management of his other medical problems
[2019-09-11] MEDS: DEXAMETHASONE SOD PHOSPHATE 4 MG/ML 1 ML VIAL IV SCH ×4 (00:57→23:34)
[2019-09-11] MEDS: SODIUM CHLORIDE 0.9% 1,000 ML IV SCH ×3 (01:01→23:35)
--- NOTE | 2019-09-11 08:05 | US ---
EXAMINATION TYPE: US biopsy soft tissue/muscle DATE OF EXAM: 09/10/2019 HISTORY: Scalp mass. FINDINGS: Maximal barrier technique was utilized. The skin overlying a suitable path to the patient' s mass at the convexity of the calvarium and scalp was localized with ultrasound and the overlying sk in prepped and draped. Ultrasound was utilized with sterile technique. Lidocaine was used for local anesthesia. A skin sg was made with a scalpel. An 18-gauge needle was advanced under direct ultr asound guidance and core specimen obtained of the mass. Specimen submitted in formalin to Pathology. Following the procedure, hemostasis achieved and the patient is discharged in stable condition with out complication. IMPRESSION:STATUS POST ULTRASOUND GUIDED CORE BIOPSY OF scalp MASS, PATHOLOGY IS PENDING. THIS PROCE DURE IS PERFORMED BY THE UNDERSIGNED.
[2019-09-11 08:14] LABS: ALT 18 U/L (21-72); AST 23 U/L (17-59); African American GFR (CKD) >90 (>60 ml/min/1.73 sqM); Alkaline Phosphatase 58 U/L (38-126); Anion Gap 10 mmol/L; Blood Urea Nitrogen 22 mg/dL (9-20); Calcium 9.7 mg/dL (8.4-10.2); Carbon Dioxide 23 mmol/L (22-30); Chloride 101 mmol/L (98-107); Glucose 154 mg/dL (74-99); Non-African American GFR(CKD) 79 (>60 ml/min/1.73 sqM); Potassium 4.6 mmol/L (3.5-5.1); Sodium 134 mmol/L (137-145); Total Bilirubin 0.7 mg/dL (0.2-1.3); Total Protein 7.3 g/dL (6.3-8.2)
[2019-09-11 08:33] LABS: Basophils % (A) 0 %; Eosinophils % (A) 0 %; HCT 40.7 % (39.0-53.0); HGB 13.1 gm/dL (13.0-17.5); Hypochromasia Slight; Lymphocytes # (A) 1.1 k/uL (1.0-4.8); Lymphocytes % (A) 10 %; MCH 31.8 pg (25.0-35.0); MCHC 32.2 g/dL (31.0-37.0); Mean Platelet Volume 8.1; Monocytes # (A) 0.3 k/uL (0-1.0); Monocytes % (A) 2 %; Neutrophils % (A) 87 %; Platelet Count 154 k/uL (150-450); RBC 4.12 m/uL (4.30-5.90); RDW 14.1 % (11.5-15.5); WBC 11.5 k/uL (3.8-10.6)
[2019-09-11 08:38] LABS: MCV 98.8 fL (80.0-100.0)
--- NOTE | 2019-09-11 08:38 | P.CONS ---
History of Present Illness - Reason for Consult Consult date: 09/10/19 scalp mass Requesting physician: Mohit Westfall - Chief Complaint falls, scalp mass - History of Present Illness The patient is an 88-year-old male with no known history of malignancy outside of non-melanoma skin cancer. He presents secondary to increased falls at home, and was found to have a large mass in the left parietal scalp exerting mass effect on the brain. The patient's oncologic history began within the last 6 weeks. He reports he has had difficulty with swelling in his legs. Over the past 2 weeks, he has had increasing difficulty with standing. He notes that he typically uses a walker, but is able to ambulate with a walker. Over the past 2 weeks, he has had frequent falls when trying to get out of bed. He does not feel dizzy, just weak in the lower extremities. He was taken to the ER for evaluation on September 09, and a CT scan of the brain showed a large destructive mass in the left parietal lobe with intracranial and extracranial extension. There is evidence of mass effect on the brain. This is worrisome for a metastatic deposit. The patient was subsequently admitted, and on September 10 he underwent a biopsy of the lesion. The patient also underwent a CT scan of the chest, abdomen and pelvis which was not clear for an obvious primary lesion. He also underwent a bone scan which revealed some mild abnormal uptake in the right lateral seventh and posterior left 11th rib, but these were not definitive for metastatic lesions. The patient reports that he has noticed the bump on his head for the past 6 weeks. He reports this area is not painful. He recalls that he had bumped his head when getting out of the car, and initially attributed this lesion to that incident. At the present time he denies headaches, nausea/vomiting, numbness tingling in the extremities, double vision or sensation of dizziness. Review of Systems Constitutional: Denies chills, Denies chronic headaches, Denies fever Eyes: denies blurred vision, denies decreased vision Ears, nose, mouth and throat: Denies headache, Denies neck lump Cardiovascular: Denies chest pain Respiratory: Denies cough, Denies dyspnea Gastrointestinal: Denies abdominal pain Musculoskeletal: Reports frequent falls, Reports gait dysfunction, Reports muscle weakness Integumentary: Denies rash Neurological: Reports balance difficulties, Reports paresthesias, Denies change in mentation, Denies change in speech, Denies confusion, Denies double vision, Denies headaches, Denies numbness, Denies paralysis Psychiatric: Denies confusion, Denies depression Endocrine: Denies fatigue Past Medical History Past Medical History: Atrial Fibrillation, Prostate Disorder, Skin Disorder Additional Past Medical History / Comment(s): BPH; CARDIAC DYSRHTYMIA NOS; CERVICAL RADICULOPATHY; ROSACEA; BENIGN ESSENTIAL HYPERTENSION; ATRIAL FIBRILLATION; MICROSCOPIC HEMATURIA; SEE CHART REPORT FROM [facility]. History of Any Multi-Drug Resistant Organisms: None Reported Past Surgical History: Orthopedic Surgery Additional Past Surgical History / Comment(s): left ankle fx repair, cataract removal Past Anesthesia/Blood Transfusion Reactions: No Reported Reaction Past Psychological History: No Psychological Hx Reported Smoking Status: Never smoker Past Alcohol Use History: None Reported Past Drug Use History: None Reported - Past Family History Father Family Medical History: Prostate Disorder Additional Family Medical History / Comment(s): MALIGNANT TUMOR OF PROSTATE Mother Family Medical History: Diabetes Mellitus Additional Family Medical History / Comment(s): DM II Medications and Allergies Home Medications Medication Instructions Recorded Confirmed Type Furosemide [Lasix] 40 mg PO DAILY 09/09/19 09/09/19 History Macular Vitamin [id number] 1 tab PO DAILY 09/09/19 09/09/19 History Tablet Metoprolol Tartrate [Lopressor] 12.5 mg PO DAILY 09/09/19 09/09/19 History Multivitamins, Thera [Multivitamin 1 tab PO DAILY 09/09/19 09/09/19 History (formulary)] Potassium Chloride ER [K-Dur 10] 10 meq PO DAILY 09/09/19 09/09/19 History Rivaroxaban [Xarelto] 15 mg PO W/SUPPER 09/09/19 09/09/19 History Tamsulosin [Flomax] 0.4 mg PO HS 09/09/19 09/09/19 History Viactiv [id number] 2 tab PO BID 09/09/19 09/09/19 History Chewable Tablet Allergies Allergy/AdvReac Type Severity Reaction Status Date / Time No Known Allergies Allergy Verified 09/09/19 21:58 Physical Exam Vitals: Vital Signs Temp Pulse Resp BP Pulse Ox 09/11/19 01:24 97.9 F 73 16 119/61 97 09/11/19 00:15 18 09/10/19 19:50 97.6 F 86 18 126/72 98 09/10/19 19:20 16 09/10/19 15:00 97.6 F 94 17 123/78 99 09/10/19 14:45 90 16 132/74 99 09/10/19 14:30 92 16 127/80 99 09/10/19 14:15 90 16 143/74 98 Intake and Output 09/10/19 09/11/19 09/11/19 22:59 06:59 14:59 Output Total 1100 300 Balance -1100 -300 Output: Urine 1100 300 Other: Voiding Method Urinal Urinal # Bowel Movements 2 1 Weight 127.5 kg - Constitutional General appearance: cooperative, no acute distress - EENT Eyes: EOMI, PERRLA ENT: hearing grossly normal - Neck Neck: no lymphadenopathy (swelling left mid-cervical region but not consistent with lymphadenopathy) - Respiratory Respiratory: bilateral: CTA - Cardiovascular Rhythm: regular - Gastrointestinal General gastrointestinal: no distended, no tenderness - Integumentary Integumentary: no calor, no cellulitis - Neurologic Neurologic: CNII-XII intact - Musculoskeletal Musculoskeletal: right sided weakness (Right lower extremity 4/5 compared to 5/5 left) - Psychiatric Psychiatric: A&O x's 3, appropriate affect Results CBC & Chem 7: 09/09/19 17:19 09/11/19 07:36 Labs: Abnormal Lab Results - Last 24 Hours (Table) 09/11/19 Range/Units 07:36 Sodium 134 L (137-145) mmol/L BUN 22 H (9-20) mg/dL Glucose 154 H (74-99) mg/dL ALT 18 L (21-72) U/L CT scan - abdomen: report reviewed, image reviewed CT scan - chest: report reviewed, image reviewed CT Scan - head: report reviewed, image reviewed CT scan - pelvis: report reviewed, image reviewed Assessment and Plan Plan: The patient is an 88-year-old male with no known history of malignancy outside of several small nonmelanoma skin cancers. He presents with a large destructive lesion arising from the left parietal bone with intracranial and extracranial extension with concern for mass effect on the brain. Biopsy of this lesion is pending at this time. 1. Scalp mass: pathology pending. Recommend MRI with contrast for further characterization of disease. Check PSA, myeloma markers pending. 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 The patient will likely require palliative treatment to this lesion, however we will await final pathology as the patient is minimally symptomatic at this time. Continue Dexamethasone, PPI. 2. Frequent falls: This may be due to mass effect from the aforementioned s calp lesion. Patient also appears to have bilateral lower extremity edema, which could also be contributing to his difficulty with ambulation. Time with Patient: Greater than 30
[2019-09-11] MEDS: POTASSIUM CHLORIDE ER 10 MEQ TAB.ER.PRT PO SCH (08:57)
[2019-09-11] MEDS: METOPROLOL TARTRATE 12.5 MG TAB PO SCH (08:57)
[2019-09-11] MEDS: VIT A,C & E-LUTEIN-MINERALS 1 EACH TAB PO SCH (08:58)
[2019-09-11] MEDS: FUROSEMIDE 40 MG TAB PO SCH (08:58)
[2019-09-11] MEDS: MULTIVITAMINS, THERA 1 EACH TAB PO SCH (08:58)
[2019-09-11 10:25] LABS: Albumin 3.67 g/dL (3.80-4.90); Gamma Globulin 1.29 g/dL (0.70-1.50)
--- NOTE | 2019-09-11 11:10 | P.PN ---
Subjective Progress Note Date: 09/11/19 Grayson Landry is an 88-year-old male who presented to [facility] emergency room with a chief complaint of weakness and multiple falls, he states that he had fallen 5 times in the last 2 weeks, EMS had to be called repeatedly because he was unable to get up and his was unable to help him, patient was also having difficulty getting in and out of his apartment due to having to go up 15 stairs, he noticed that he started having lower extremity swelling in the last few weeks , yesterday his son was visiting him and he was worried about his condition and decided to send him to emergency room for evaluation. Patient was evaluated in the emergency room, chest x-ray revealed evidence of cardiac enlargement which is new from previous evaluation, patient has a lump on the left side of the back of his head which she related to falling and hitting his head in the past however computed tomography scan of the brain was done in the emergency room and revealed evidence of mass with bony destruction. Patient was admitted to medical floor for further evaluation and treatment. On 09/11/2019 patient's alert and oriented 3 resting comfortably in bed. Patient underwent soft tissue biopsy results pending. MRI of the brain has been ordered. Neurology oncology and interventional radiology on consult. Probable palliative treatment to the lesion awaiting final pathology per IR. At this time patient denies chest pain or shortness of breath. Patient denies nausea vomiting or diarrhea. Patient denies any urinary burning or frequency Objective - Vital Signs Vital signs: Vital Signs Temp 97.8 F 09/11/19 07:00 Pulse 84 09/11/19 07:00 Resp 17 09/11/19 07:00 BP 121/70 09/11/19 07:00 Pulse Ox 96 09/11/19 07:00 Intake & Output 09/10/19 09/11/19 09/11/19 18:59 06:59 18:59 Intake Total 354 Output Total 1310 800 Balance -956 -800 Weight 127.5 kg Intake: Oral 354 Output: Urine 1310 800 Other: Voiding Method Urinal # Voids 3 # Bowel Movements 1 1 - Exam In general patient is alert and oriented 3 in no apparent distress answering questions appropriately HEENT head normocephalic and atraumatic Neck is supple no JVD no goiter no lymphadenopathy Chest exam reveals a few scattered rhonchi no wheezing Cardiac exam reveals regular heart sounds S1 and S2 no gallops no murmurs Abdomen is soft nontender no hepatosplenomegaly with normal bowel sounds Extremity exam reveals 1+ edema bilaterally no cyanosis or clubbing Neurological examination reveals generalized weakness but no gross focal deficit - Labs CBC & Chem 7: 09/11/19 07:36 09/11/19 07:36 Labs: Abnormal Lab Results - Last 24 Hours (Table) 09/10/19 09/11/19 09/11/19 Range/Units 06:00 07:36 07:36 WBC 11.5 H (3.8-10.6) k/uL RBC 4.12 L (4.30-5.90) m/uL Neutrophils # 10.0 H (1.3-7.7) k/uL Sodium 134 L (137-145) mmol/L BUN 22 H (9-20) mg/dL Glucose 154 H (74-99) mg/dL ALT 18 L (21-72) U/L Albumin (PEP) 3.67 L (3.80-4.90) g/dL Assessment and Plan Assessment: #1 generalized weakness with multiple falls #2 evidence of mild dehydration with elevated BUN at 23 and creatinine at 1.05. Creatinine improving to 0.83 and bun 22 #3 evidence of 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 Bone scan completed showing destructive left parietal mass seen on prior CT has abnormal uptake on bone scan. Abnormal radiotracer foci within the lateral right rib and posterior left 11th rib these are nonspecific and could relate to focal lesions or rib fractures. Per neurology services MRI of the brain has been ordered. Biopsy has been completed results pending. Oncology services are following radiation oncology has been consulted. #4 evidence of cardiomegaly on chest x-ray, which is new from before, BNP was mildly elevated at 1270 patient states that he started having lower extremity swelling in the last few weeks at this time will check echocardiogram, continue with oral Lasix. #5 underlying history of atrial fibrillation, heart rate is well-controlled on metoprolol, patient was maintained on Xarelto for stroke prevention, at this time Xarelto is on hold due to multiple falls and due to intracranial finding, will reassess restarting anticoagulation once the clinical picture is clear. #6 underlying history of benign prostatic hypertrophy maintained on Flomax continue. DVT prophylaxis SCDs. GI prophylaxis Pepcid Neurology, oncology and interventional radiology oncology following Biopsy results pending. Nuclear bone scan, CT of abdomen and pelvis and brain MRI ordered by consulting providers Prognosis is guarded due to clinical findings and advanced age. I performed an examination of the patient and discussed their management with the Nurse Practitioner. I have reviewed the Nurse Practitioner's notes and agree with the documented findings and plan of care
--- NOTE | 2019-09-11 11:32 | MR ---
EXAMINATION TYPE: MR brain wo/w con DATE OF EXAM: 09/11/2019 COMPARISON: CT brain 09/09/2019 HISTORY: Brain mass, rule out other metastatic deposits TECHNIQUE: Multiplanar, multisequence images of the brain and brainstem is performed without and with IV contras t, utilizing 13 mL intravenous Gadavist . FINDINGS: There is a large soft tissue mass involving the soft tissues with destruction of the adjacent left pa rietal calvarium extending into the left parietal lobe measuring 7 x 5.3 cm intracranially. Adjacent subcutaneous mass measures 5.3 cm. There is destruction of the parietal calvarium. Involvement of the adjacent dural sinus felt present. There is severe compression of the left lateral ventricle. Contra lateral right lateral ventricle appears to be dilated. Could not exclude a degree of subfalcine herni ation measuring approximately 2 mm. Contralateral dilation of the right temporal horn can be associat ed with brainstem compression. Diffuse and numerous focal areas of nonspecific signal the white matter are noted in be associated wi th remote microvascular ischemia. Generalized degenerative change noted. There also appears to be enhancement along the right frontal calvarium which may represent another ar ea of neoplastic process measuring 5 mm. Diffuse dural enhancement is seen.. IMPRESSION: 1. Destructive left parietal mass involving the soft tissues, parietal calvarium and the intracrania l left parietal lobe. There is destruction of the parietal bone posteriorly as well as involvement of the adjacent dural venous sinus. Filling defects seen in the adjacent dural venous sinus is suggesti ve of tumor invasion. Intracranial portion of the neoplasm measures 4.5 x 6.7 x 5.3 cm 2. Severe compression of the body of the left lateral ventricle with suspected contralateral dilation of the right lateral ventricle. There is approximately 2 mm subfalcine herniation suspected left to right. As noted above there is asymmetry of the temporal horns which can be associated with uncal her niation or brainstem compression which should be correlated clinically. 3. 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
--- NOTE | 2019-09-11 16:23 | P.PN ---
Subjective Progress Note Date: 09/11/19 Patient offers no new complaints. Laying comfortably in the bed. Very pleasant. Denies headache, although sometimes feels pressure in the left scalp mass region. 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 Patient has mild right pronator drift. Strength and acls specialist appears normal. Still with significant peripheral edema. MRI of brain with and without contrast revealed destructive left parietal mass involving the soft tissues, parietal calvarium and the intracranial left parietal lobe. There is distraction of the parietal bone posteriorly as well as involvement of the adjacent dural venous sinus. Laying defects seen in the adjacent dural venous sinus is suggestive of tumor invasion. Intracranial portion of the neoplasm measures 4.5 x 6.7 x 5.3 cm. There is severe compression of the body of the left lateral ventricle with suspected contralateral dilation of the right lateral ventricle. There is approximately 2 mm subfalcine herniation suspected [id number]. As noted above, there is asymmetry of the temporal horns which can be associated with uncal herniation or brainstem compression which should be correlated clinically. Diffuse dural enha ncement suspicious for dural metastasis. Objective - Vital Signs Vital signs: Vital Signs Temp 97.9 F 09/11/19 15:00 Pulse 108 H 09/11/19 15:00 Resp 18 09/11/19 15:00 BP 116/70 09/11/19 15:00 Pulse Ox 97 09/11/19 15:00 Intake & Output 09/10/19 09/11/19 09/11/19 18:59 06:59 18:59 Intake Total 354 Output Total 1310 800 500 Balance -956 -800 -500 Weight 127.5 kg Intake: Oral 354 Output: Urine 1310 800 500 Other: Voiding Method Urinal # Voids 3 # Bowel Movements 1 1 - Labs CBC & Chem 7: 09/11/19 07:36 09/11/19 07:36 Labs: Abnormal Lab Results - Last 24 Hours (Table) 09/10/19 09/10/19 09/11/19 Range/Units 06:00 06:00 07:36 WBC 11.5 H (3.8-10.6) k/uL RBC 4.12 L (4.30-5.90) m/uL Neutrophils # 10.0 H (1.3-7.7) k/uL Sodium (137-145) mmol/L BUN (9-20) mg/dL Glucose (74-99) mg/dL ALT (21-72) U/L Albumin (PEP) 3.67 L (3.80-4.90) g/dL Total PSA 7.0 H (<=4.0) ng/mL Free [place] LC, Quant 4.60 H (0.33-1.94) mg/dL 09/11/19 Range/Units 07:36 WBC (3.8-10.6) k/uL RBC (4.30-5.90) m/uL Neutrophils # (1.3-7.7) k/uL Sodium 134 L (137-145) mmol/L BUN 22 H (9-20) mg/dL Glucose 154 H (74-99) mg/dL ALT 18 L (21-72) U/L Albumin (PEP) (3.80-4.90) g/dL Total PSA (<=4.0) ng/mL Free [place] LC, Quant (0.33-1.94) mg/dL Assessment and Plan Assessment: * 88-year-old male admitted with left posterior parietal extracranial and intracranial (extra-axial) mass with bony destruction of the associated parietal calvarium, and compression of mass into the parietal lobe. MRI of the brain revealed significant intracranial extension with mild subfalcine herniation. 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 * Bilateral lower extremity edema. Plan: * Patient had undergone biopsy of the scalp lesion. Awaiting pathology report. * Oncology following. * Serum immunofixation electrophoresis negative for monoclonal gammopathy. * Patient probably will need neurosurgical consultation versus palliative care.
[2019-09-11] MEDS: TAMSULOSIN 0.4 MG CAP.ER.24H PO SCH (19:47)
[2019-09-12 07:26] LABS: Basophils % (A) 0 %; Eosinophils % (A) 0 %; HCT 37.8 % (39.0-53.0); HGB 12.6 gm/dL (13.0-17.5); Lymphocytes # (A) 1.2 k/uL (1.0-4.8); Lymphocytes % (A) 10 %; MCH 30.9 pg (25.0-35.0); MCHC 33.4 g/dL (31.0-37.0); Mean Platelet Volume 8.3; Monocytes # (A) 0.3 k/uL (0-1.0); Monocytes % (A) 2 %; Neutrophils # (A) 11.2 k/uL (1.3-7.7); Neutrophils % (A) 88 %; Platelet Count 162 k/uL (150-450); RBC 4.09 m/uL (4.30-5.90); WBC 12.8 k/uL (3.8-10.6)
[2019-09-12 07:27] LABS: Albumin 3.8 g/dL (3.5-5.0); Calcium 9.5 mg/dL (8.4-10.2); Potassium 4.6 mmol/L (3.5-5.1); Total Bilirubin 0.7 mg/dL (0.2-1.3); Total Protein 7.1 g/dL (6.3-8.2)
[2019-09-12] MEDS: DEXAMETHASONE SOD PHOSPHATE 4 MG/ML 1 ML VIAL IV SCH ×3 (07:27→23:53)
[2019-09-12] MEDS: POTASSIUM CHLORIDE ER 10 MEQ TAB.ER.PRT PO SCH (07:28)
[2019-09-12] MEDS: FAMOTIDINE 20 MG TAB PO SCH (07:28)
[2019-09-12] MEDS: FUROSEMIDE 40 MG TAB PO SCH (07:28)
[2019-09-12] MEDS: METOPROLOL TARTRATE 12.5 MG TAB PO SCH (07:28)
[2019-09-12] MEDS: VIT A,C & E-LUTEIN-MINERALS 1 EACH TAB PO SCH (07:28)
[2019-09-12] MEDS: MULTIVITAMINS, THERA 1 EACH TAB PO SCH (07:28)
[2019-09-12 07:46] LABS: MCV 92.5 fL (80.0-100.0)
--- NOTE | 2019-09-12 10:48 | P.PN ---
Subjective Progress Note Date: 09/12/19 Grayson Landry is an 88-year-old male who presented to [facility] emergency room with a chief complaint of weakness and multiple falls, he states that he had fallen 5 times in the last 2 weeks, EMS had to be called repeatedly because he was unable to get up and his was unable to help him, patient was also having difficulty getting in and out of his apartment due to having to go up 15 stairs, he noticed that he started having lower extremity swelling in the last few weeks , yesterday his son was visiting him and he was worried about his condition and decided to send him to emergency room for evaluation. Patient was evaluated in the emergency room, chest x-ray revealed evidence of cardiac enlargement which is new from previous evaluation, patient has a lump on the left side of the back of his head which she related to falling and hitting his head in the past however computed tomography scan of the brain was done in the emergency room and revealed evidence of mass with bony destruction. Patient was admitted to medical floor for further evaluation and treatment. On 09/11/2019 patient's alert and oriented 3 resting comfortably in bed. Patient underwent soft tissue biopsy results pending. MRI of the brain has been ordered. Neurology oncology and interventional radiology on consult. Probable palliative treatment to the lesion awaiting final pathology per IR. At this time patient denies chest pain or shortness of breath. Patient denies nausea vomiting or diarrhea. Patient denies any urinary burning or frequency on 09/12/2019 patient is alert and oriented 3 resting comfortably in chair. Biopsy results still pending.at this time patient denies any chest pain or shortness of breath. Patient denies any neurological symptoms denies blurry vision or weakness. Patient denies nausea vomiting or diarrhea. Patient denies any urinary burning or frequency. Objective - Vital Signs Vital signs: Vital Signs Temp 98.7 F 09/12/19 07:45 Pulse 92 09/12/19 07:45 Resp 16 09/12/19 07:45 BP 122/61 09/12/19 07:45 Pulse Ox 96 09/12/19 07:45 Intake & Output 09/11/19 09/12/19 09/12/19 18:59 06:59 18:59 Intake Total 100 Output Total 500 750 Balance -500 -650 Weight 128 kg Intake: Oral 100 Output: Urine 500 750 Other: Voiding Method Urinal - Exam In general patient is alert and oriented 3 in no apparent distress answering questions appropriately HEENT head normocephalic and atraumatic Neck is supple no JVD no goiter no lymphadenopathy Chest exam reveals a few scattered rhonchi no wheezing Cardiac exam reveals regular heart sounds S1 and S2 no gallops no murmurs Abdomen is soft nontender no hepatosplenomegaly with normal bowel sounds Extremity exam reveals 1+ edema bilaterally no cyanosis or clubbing Neurological examination reveals generalized weakness but no gross focal deficit - Labs CBC & Chem 7: 09/12/19 07:02 09/12/19 07:02 Labs: Abnormal Lab Results - Last 24 Hours (Table) 09/10/19 09/10/19 09/12/19 Range/Units 06:00 06:00 07:02 WBC 12.8 H (3.8-10.6) k/uL RBC 4.09 L (4.30-5.90) m/uL Hgb 12.6 L (13.0-17.5) gm/dL Hct 37.8 L (39.0-53.0) % Neutrophils # 11.2 H (1.3-7.7) k/uL Sodium (137-145) mmol/L BUN (9-20) mg/dL Glucose (74-99) mg/dL Total PSA 7.0 H (<=4.0) ng/mL Free [place] LC, Quant 4.60 H (0.33-1.94) mg/dL 09/12/19 Range/Units 07:02 WBC (3.8-10.6) k/uL RBC (4.30-5.90) m/uL Hgb (13.0-17.5) gm/dL Hct (39.0-53.0) % Neutrophils # (1.3-7.7) k/uL Sodium 133 L (137-145) mmol/L BUN 26 H (9-20) mg/dL Glucose 139 H (74-99) mg/dL Total PSA (<=4.0) ng/mL Free [place] LC, Quant (0.33-1.94) mg/dL Assessment and Plan Assessment: #1 generalized weakness with multiple falls #2 evidence of mild dehydration with elevated BUN at 23 and creatinine at 1.05. Creatinine improving to 0.83 and bun 22 #3 evidence of 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 Bone scan com pleted showing destructive left parietal mass seen on prior CT has abnormal uptake on bone scan. Abnormal radiotracer foci within the lateral right rib and posterior left 11th rib these are nonspecific and could relate to focal lesions or rib fractures. MRI of the brain has been ordered and reviewed per neurology. Biopsy has been completed results pending. Oncology services are following radiation oncology has been consulted.awaiting pathology for further plan of care. patient has been started on Decadron per oncology services for mass effect on the brain #4 evidence of cardiomegaly on chest x-ray, which is new from before, BNP was mildly elevated at 1270 patient states that he started having lower extremity swelling in the last few weeks at this time will check echocardiogram, continue with oral Lasix. #5 underlying history of atrial fibrillation, heart rate is well-controlled on metoprolol, patient was maintained on Xarelto for stroke prevention, at this time Xarelto is on hold due to multiple falls and due to intracranial finding, will reassess restarting anticoagulation once the clinical picture is clear. #6 underlying history of benign prostatic hypertrophy maintained on Flomax continue. #7. Leukocytosis. Likely secondary to Decadron. UA negative DVT prophylaxis SCDs. GI prophylaxis Pepcid Neurology, oncology and interventional radiology oncology following Biopsy results pending. Prognosis is guarded due to clinical findings and advanced age. I performed an examination of the patient and discussed their management with the Nurse Practitioner. I have reviewed the Nurse Practitioner's notes and agree with the documented findings and plan of care
--- NOTE | 2019-09-12 13:12 | P.PN ---
Subjective Progress Note Date: 09/12/19 patient's son and [id number] were present today. Patient offers no new complaints. States feeling is much better today as compared to yesterday. Sitting in the recliner chair. Very pleasant. Denies headache, although sometimes feels pressure in the left scalp mass region. 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 Patient has mild right pronator drift. Strength and die designer appears normal. Still with significant peripheral edema. MRI of brain with and without contrast revealed destructive left parietal mass involving the soft tissues, parietal calvarium and the intracranial left parietal lobe. There is distraction of the parietal bone posteriorly as well as involvement of the adjacent dural venous sinus. Laying defects seen in the adjacent dural venous sinus is suggestive of tumor invasion. Intracranial portion of the neoplasm measures 4.5 x 6.7 x 5.3 cm. There is severe compression of the body of the left lateral ventricle with suspected con tralateral dilation of the right lateral ventricle. There is approximately 2 mm subfalcine herniation suspected [id number]. As noted above, there is asymmetry of the temporal horns which can be associated with uncal herniation or brainstem compression which should be correlated clinically. 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 Objective - Vital Signs Vital signs: Vital Signs Temp 98.7 F 09/12/19 07:45 Pulse 92 09/12/19 07:45 Resp 16 09/12/19 07:45 BP 122/61 09/12/19 07:45 Pulse Ox 96 09/12/19 07:45 Intake & Output 09/11/19 09/12/19 09/12/19 18:59 06:59 18:59 Intake Total 100 Output Total 500 750 Balance -500 -650 Weight 128 kg Intake: Oral 100 Output: Urine 500 750 Other: Voiding Method Urinal - Exam on examination patient is alert and awake in no distress. Speech and language functions are normal. Patient has mild right-sided visual field neglect. Still very subtle right arm weakness. Sensations are equal. Tone and bulk of muscles normal. - Labs CBC & Chem 7: 09/12/19 07:02 09/12/19 07:02 Labs: Abnormal Lab Results - Last 24 Hours (Table) 09/10/19 09/12/19 09/12/19 Range/Units 06:00 07:02 07:02 WBC 12.8 H (3.8-10.6) k/uL RBC 4.09 L (4.30-5.90) m/uL Hgb 12.6 L (13.0-17.5) gm/dL Hct 37.8 L (39.0-53.0) % Neutrophils # 11.2 H (1.3-7.7) k/uL Sodium 133 L (137-145) mmol/L BUN 26 H (9-20) mg/dL Glucose 139 H (74-99) mg/dL Total PSA 7.0 H (<=4.0) ng/mL Assessment and Plan Assessment: * 88-year-old male admitted with left posterior parietal extracranial and intracranial (extra-axial) mass with bony destruction of the associated parietal calvarium, and compression of mass into the parietal lobe. MRI of the brain revealed significant intracranial extension with mild subfalcine herniation. 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 * Bilateral lower extremity edema. Plan: * Patient had undergone biopsy of the scalp lesion. Awaiting pathology report. * Oncology following. Await final recommendation, perhaps after biopsy results are available. * Serum immunofixation electrophoresis negative for monoclonal gammopathy. * Patient probably will need radiation therapy with palliative care. * Discussed with patient and his family members about empiric initiation of antiepileptic medication for seizure prophylaxis. Patient never had a seizur e. Patient wanted to hold off on seizure medication and will consider only if he has any obvious clinical seizure. * Dr Paniagua available on the weekend for any neurological concerns.
[2019-09-12] MEDS: SODIUM CHLORIDE 0.9% 1,000 ML IV SCH ×2 (15:24→23:57)
[2019-09-12] MEDS: TAMSULOSIN 0.4 MG CAP.ER.24H PO SCH (20:06)
[2019-09-13 07:21] LABS: Basophils % (A) 0 %; Eosinophils % (A) 0 %; HCT 40.2 % (39.0-53.0); HGB 13.6 gm/dL (13.0-17.5); Lymphocytes # (A) 1.5 k/uL (1.0-4.8); Lymphocytes % (A) 12 %; MCH 31.2 pg (25.0-35.0); MCHC 33.8 g/dL (31.0-37.0); MCV 92.3 fL (80.0-100.0); Mean Platelet Volume 8.7; Monocytes # (A) 0.4 k/uL (0-1.0); Monocytes % (A) 3 %; Neutrophils # (A) 10.6 k/uL (1.3-7.7); Neutrophils % (A) 85 %; Platelet Count 184 k/uL (150-450); RBC 4.36 m/uL (4.30-5.90); RDW 13.9 % (11.5-15.5); WBC 12.5 k/uL (3.8-10.6)
[2019-09-13 07:34] LABS: Albumin 4.1 g/dL (3.5-5.0); Calcium 9.6 mg/dL (8.4-10.2); Potassium 4.8 mmol/L (3.5-5.1); Total Bilirubin 0.8 mg/dL (0.2-1.3); Total Protein 7.6 g/dL (6.3-8.2)
[2019-09-13] MEDS: DEXAMETHASONE SOD PHOSPHATE 4 MG/ML 1 ML VIAL IV SCH ×3 (10:45→23:06)
[2019-09-13] MEDS: METOPROLOL TARTRATE 12.5 MG TAB PO SCH (10:46)
[2019-09-13] MEDS: POTASSIUM CHLORIDE ER 10 MEQ TAB.ER.PRT PO SCH (10:46)
[2019-09-13] MEDS: FAMOTIDINE 20 MG TAB PO SCH (10:46)
[2019-09-13] MEDS: FUROSEMIDE 40 MG TAB PO SCH (10:46)
[2019-09-13] MEDS: MULTIVITAMINS, THERA 1 EACH TAB PO SCH (10:46)
[2019-09-13] MEDS: VIT A,C & E-LUTEIN-MINERALS 1 EACH TAB PO SCH (10:47)
--- NOTE | 2019-09-13 12:59 | P.PN ---
Subjective Progress Note Date: 09/13/19 Grayson Landry is an 88-year-old male who presented to [facility] emergency room with a chief complaint of weakness and multiple falls, he states that he had fallen 5 times in the last 2 weeks, EMS had to be called repeatedly because he was unable to get up and his was unable to help him, patient was also having difficulty getting in and out of his apartment due to having to go up 15 stairs, he noticed that he started having lower extremity swelling in the last few weeks , yesterday his son was visiting him and he was worried about his condition and decided to send him to emergency room for evaluation. Patient was evaluated in the emergency room, chest x-ray revealed evidence of cardiac enlargement which is new from previous evaluation, patient has a lump on the left side of the back of his head which she related to falling and hitting his head in the past however computed tomography scan of the brain was done in the emergency room and revealed evidence of mass with bony destruction. Patient was admitted to medical floor for further evaluation and treatment. On 09/11/2019 patient's alert and oriented 3 resting comfortably in bed. Patient underwent soft tissue biopsy results pending. MRI of the brain has been ordered. Neurology oncology and interventional radiology on consult. Probable palliative treatment to the lesion awaiting final pathology per IR. At this time patient denies chest pain or shortness of breath. Patient denies nausea vomiting or diarrhea. Patient denies any urinary burning or frequency on 09/12/2019 patient is alert and oriented 3 resting comfortably in chair. Biopsy results still pending.at this time patient denies any chest pain or shortness of breath. Patient denies any neurological symptoms denies blurry vision or weakness. Patient denies nausea vomiting or diarrhea. Patient denies any urinary burning or frequency. On 09/13/2019 patient was seen and examined on the medical floor he is alert and oriented 3 in no apparent distress he is complaining of unsteadiness in his gait otherwise he denies any complaints there is no fever or chills no headache or dizziness no chest pain no shortness of breath no cough no nausea or vomiting no abdominal pain no diarrhea no burning with urination no frequency or urgency and no hematuria, no weakness or numbness in any of his extremity no change in vision or in speech. Biopsy result is still pending at this time. Objective - Vital Signs Vital signs: Vital Signs Temp 97.7 F 09/13/19 07:12 Pulse 73 09/13/19 07:12 Resp 18 09/13/19 07:12 BP 130/83 09/13/19 07:12 Pulse Ox 95 09/13/19 07:12 Intake & Output 09/12/19 09/13/19 09/13/19 18:59 06:59 18:59 Intake Total 600 Output Total 1000 Balance -400 Weight 130 kg Intake: Oral 600 Output: Urine 1000 Other: Voiding Method Urinal # Voids 3 1 # Bowel Movements 1 - Exam In general patient is alert and oriented 3 in no apparent distress answering questions appropriately HEENT head normocephalic and atraumatic Neck is supple no JVD no goiter no lymphadenopathy Chest exam reveals a few scattered rhonchi no wheezing Cardiac exam reveals regular heart sounds S1 and S2 no gallops no murmurs Abdomen is soft nontender no hepatosplenomegaly with normal bowel sounds Extremity exam reveals 1+ edema bilaterally no cyanosis or clubbing Neurological examination reveals generalized weakness but no gross focal deficit - Labs CBC & Chem 7: 09/13/19 06:39 09/13/19 06:39 Labs: Abnormal Lab Results - Last 24 Hours (Table) 09/13/19 09/13/19 Range/Units 06:39 06:39 WBC 12.5 H (3.8-10.6) k/uL Neutrophils # 10.6 H (1.3-7.7) k/uL Sodium 131 L (137-145) mmol/L Chloride 97 L (98-107) mmol/L BUN 28 H (9-20) mg/dL Glucose 135 H (74-99) mg/dL Assessment and Plan Plan: #1 generalized weakness with multiple falls #2 evidence of mild dehydration with elevated BUN at 23 and creatinine at 1.05. Creatinine improving to 0.83 and bun 22 #3 evidence of intracranial and extracranial mass with associated destructive lesion in the left parietal bone, on computed tomography scan without contrast done in the emergency room, at this time neurology consultation and oncology con sultation were requested, will assess need for further imaging. Bone scan completed showing destructive left parietal mass seen on prior CT has abnormal uptake on bone scan. Abnormal radiotracer foci within the lateral right rib and posterior left 11th rib these are nonspecific and could relate to focal lesions or rib fractures. MRI of the brain has been ordered and reviewed per neurology. Biopsy has been completed results pending. Oncology services are following radiation oncology has been consulted.awaiting pathology for further plan of care. patient has been started on Decadron per oncology services for mass effect on the brain #4 evidence of cardiomegaly on chest x-ray, which is new from before, BNP was mildly elevated at 1270 patient states that he started having lower extremity swelling in the last few weeks at this time will check echocardiogram, continue with oral Lasix. #5 underlying history of atrial fibrillation, heart rate is well-controlled on metoprolol, patient was maintained on Xarelto for stroke prevention, at this time Xarelto is on hold due to multiple falls and due to intracranial finding, will reassess restarting anticoagulation once the clinical picture is clear. #6 underlying history of benign prostatic hypertrophy maintained on Flomax continue. #7. Leukocytosis. Likely secondary to Decadron. UA negative DVT prophylaxis SCDs. GI prophylaxis Pepcid Neurology, oncology and interventional radiology oncology following Biopsy results pending. Patient aware of possible diagnosis of malignant tumor, awaiting biopsy results and oncology recommendation. Prognosis is guarded due to clinical findings and advanced age.
--- NOTE | 2019-09-13 14:40 | P.PN ---
Subjective Progress Note Date: 09/12/19 Principal diagnosis: scalp mass, frequent falls Patient reports he has been up with assistance and has ambulated with a walker around the room. He still is needing help getting up from a seated position. He does feel his legs are less swollen. No headache, nausea/vomiting or nu mbness/tingling. 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 Objective - Vital Signs Vital signs: Vital Signs Temp 97.7 F 09/13/19 07:12 Pulse 73 09/13/19 08:50 Resp 18 09/13/19 08:50 BP 130/83 09/13/19 07:12 Pulse Ox 95 09/13/19 07:12 Intake & Output 09/12/19 09/13/19 09/13/19 18:59 06:59 18:59 Intake Total 600 Output Total 1000 310 Balance -400 -310 Weight 130 kg Intake: Oral 600 Output: Urine 1000 310 Other: Voiding Method Urinal Urinal # Voids 3 1 1 # Bowel Movements 1 - Constitutional General appearance: Present: no acute distress - EENT Eyes: Present: EOMI, PERRLA ENT: Present: hearing grossly normal - Neck Neck: Absent: lymphadenopathy - Respiratory Respiratory: bilateral: CTA - Cardiovascular Rhythm: regular - Gastrointestinal General gastrointestinal: Absent: distended - Neurologic Neurologic: Present: CNII-XII intact - Musculoskeletal Musculoskeletal: Present: generalized weakness (5/5 strength bilateral UE, 4/5 strength bilateral LE) - Psychiatric Psychiatric: Present: A&O x's 3, appropriate affect - Labs CBC & Chem 7: 09/13/19 06:39 09/13/19 06:39 Labs: Abnormal Lab Results - Last 24 Hours (Table) 09/13/19 09/13/19 Range/Units 06:39 06:39 WBC 12.5 H (3.8-10.6) k/uL Neutrophils # 10.6 H (1.3-7.7) k/uL Sodium 131 L (137-145) mmol/L Chloride 97 L (98-107) mmol/L BUN 28 H (9-20) mg/dL Glucose 135 H (74-99) mg/dL Assessment and Plan Plan: 88 year old male presenting with large scalp mass with extra/intracranial extension. Has had increased difficulty with falls recently - trouble getting up from seated position. 1. 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 This tumor has likely been present for a significant amount of time (benign, slow growing) and has been neglected. Would not significantly benefit from palliative RT - unclear if this is the exact reason behind his falls. RT would not cause significant tumor shrinkage. Patient should have neurosurgical evaluation - although not emergent. He may not be a candidate medically for ultimately having this resected (would require calvarium resection) but that would be more a consideration between neurosurgery and his primary + cardiology. 2. Difficulty with ambulation: Continue PT; patient understands he likely will not be able to return home ( is 89, cannot care for him) and family is working on placement. His home has 14 steps, which is beyond his current capabilities. Time with Patient: Less than 30
[2019-09-13] MEDS: TAMSULOSIN 0.4 MG CAP.ER.24H PO SCH (19:23)
[2019-09-13] MEDS: SODIUM CHLORIDE 0.9% 1,000 ML IV SCH ×2 (19:33→21:50)
[2019-09-14 07:09] LABS: Basophils % (A) 0 %; Eosinophils % (A) 0 %; HGB 13.3 gm/dL (13.0-17.5); Lymphocytes # (A) 1.6 k/uL (1.0-4.8); Lymphocytes % (A) 13 %; MCH 30.9 pg (25.0-35.0); MCHC 33.2 g/dL (31.0-37.0); MCV 93.1 fL (80.0-100.0); Mean Platelet Volume 8.5; Monocytes # (A) 0.5 k/uL (0-1.0); Monocytes % (A) 4 %; Neutrophils % (A) 82 %; Platelet Count 184 k/uL (150-450); WBC 12.1 k/uL (3.8-10.6)
[2019-09-14 07:25] LABS: Albumin 3.7 g/dL (3.5-5.0); Calcium 9.3 mg/dL (8.4-10.2); Potassium 4.6 mmol/L (3.5-5.1); Total Bilirubin 0.7 mg/dL (0.2-1.3); Total Protein 6.9 g/dL (6.3-8.2)
[2019-09-14] MEDS: FUROSEMIDE 40 MG TAB PO SCH (08:49)
[2019-09-14] MEDS: MULTIVITAMINS, THERA 1 EACH TAB PO SCH (08:49)
[2019-09-14] MEDS: METOPROLOL TARTRATE 12.5 MG TAB PO SCH (08:50)
[2019-09-14] MEDS: POTASSIUM CHLORIDE ER 10 MEQ TAB.ER.PRT PO SCH (08:50)
[2019-09-14] MEDS: VIT A,C & E-LUTEIN-MINERALS 1 EACH TAB PO SCH (08:50)
[2019-09-14] MEDS: FAMOTIDINE 20 MG TAB PO SCH (08:50)
[2019-09-14] MEDS: DEXAMETHASONE SOD PHOSPHATE 4 MG/ML 1 ML VIAL IV SCH ×3 (08:50→23:40)
--- NOTE | 2019-09-14 15:00 | P.PN ---
Subjective Progress Note Date: 09/14/19 Grayson Landry is an 88-year-old male who presented to [facility] emergency room with a chief complaint of weakness and multiple falls, he states that he had fallen 5 times in the last 2 weeks, EMS had to be called repeatedly because he was unable to get up and his was unable to help him, patient was also having difficulty getting in and out of his apartment due to having to go up 15 stairs, he noticed that he started having lower extremity swelling in the last few weeks , yesterday his son was visiting him and he was worried about his condition and decided to send him to emergency room for evaluation. Patient was evaluated in the emergency room, chest x-ray revealed evidence of cardiac enlargement which is new from previous evaluation, patient has a lump on the left side of the back of his head which she related to falling and hitting his head in the past however computed tomography scan of the brain was done in the emergency room and revealed evidence of mass with bony destruction. Patient was admitted to medical floor for further evaluation and treatment. On 09/11/2019 patient's alert and oriented 3 resting comfortably in bed. Patient underwent soft tissue biopsy results pending. MRI of the brain has been ordered. Neurology oncology and interventional radiology on consult. Probable palliative treatment to the lesion awaiting final pathology per IR. At this time patient denies chest pain or shortness of breath. Patient denies nausea vomiting or diarrhea. Patient denies any urinary burning or frequency on 09/12/2019 patient is alert and oriented 3 resting comfortably in chair. Biopsy results still pending.at this time patient denies any chest pain or shortness of breath. Patient denies any neurological symptoms denies blurry vision or weakness. Patient denies nausea vomiting or diarrhea. Patient denies any urinary burning or frequency. On 09/13/2019 patient was seen and examined on the medical floor he is alert and oriented 3 in no apparent distress he is complaining of unsteadiness in his gait otherwise he denies any complaints there is no fever or chills no headache or dizziness no chest pain no shortness of breath no cough no nausea or vomiting no abdominal pain no diarrhea no burning with urination no frequency or urgency and no hematuria, no weakness or numbness in any of his extremity no change in vision or in speech. Biopsy result is still pending at this time. on 09/14/2019 patient was seen and examined on the medical floor he is alert and oriented 3 in no apparent distress he is complaining of burning with urination urine analysis ordered, he is still complaining of unsteadiness with his gait, otherwise there is no complaints there is no fever or chills no headache or dizziness no chest pain no shortness of breath no cough no nausea or vomiting no abdominal pain no diarrhea Objective - Vital Signs Vital signs: Vital Signs Temp 97.6 F 09/14/19 14:23 Pulse 72 09/14/19 14:23 Resp 18 09/14/19 14:23 BP 129/77 09/14/19 14:23 Pulse Ox 93 L 09/14/19 14:23 Intake & Output 09/13/19 09/14/19 09/14/19 18:59 06:59 18:59 Intake Total 500 Output Total 910 500 410 Balance -910 -500 90 Weight 111 kg Intake: Oral 500 Output: Urine 910 500 410 Other: Voiding Method Urinal Urinal Urinal # Voids 2 2 3 # Bowel Movements 1 1 - Exam In general patient is alert and oriented 3 in no apparent distress answering questions appropriately HEENT head normocephalic and atraumatic Neck is supple no JVD no goiter no lymphadenopathy Chest exam reveals a few scattered rhonchi no wheezing Cardiac exam reveals regular heart sounds S1 and S2 no gallops no murmurs Abdomen is soft nontender no hepatosplenomegaly with normal bowel sounds Extremity exam reveals 1+ edema bilaterally no cyanosis or clubbing Neurological examination reveals generalized weakness but no gross focal deficit - Labs CBC & Chem 7: 09/14/19 06:40 09/14/19 06:40 Labs: Abnormal Lab Results - Last 24 Hours (Table) 09/14/19 09/14/19 Range/Units 06:40 06:40 WBC 12.1 H (3.8-10.6) k/uL Neutrophils # 10.0 H (1.3-7.7) k/uL Sodium 131 L (137-145) mmol/L Chloride 97 L (98-107) mmol/L BUN 29 H (9-20) mg/dL Glucose 126 H (74-99) mg/dL Assessment and Plan Plan: #1 generalized weakness with multiple falls #2 evidence of mild dehydration with elevated BUN at 23 and creatinine at 1.05. Creatinine improving to 0.83 and bun 22 #3 evidence of 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 Bone scan completed showing destructive left parietal mass seen on prior CT has abnormal uptake on bone scan. Abnormal radiotracer foci within the lateral right rib and posterior left 11th rib these are nonspecific and could relate to focal lesions or rib fractures. MRI of the brain has been ordered and reviewed per neurology. Biopsy has been completed results pending. Oncology services are following radiation oncology has been consulted.awaiting pathology for further plan of care. patient has been started on Decadron per oncology services for mass effect on the brain #4 evidence of cardiomegaly on chest x-ray, which is new from before, BNP was mildly elevated at 1270 patient states that he started having lower extremity swelling in the last few weeks at this time will check echocardiogram, continue with oral Lasix. #5 underlying history of atrial fibrillation, heart rate is well-controlled on metoprolol, patient was maintained on Xarelto for stroke prevention, at this time Xarelto is on hold due to multiple falls and due to intracranial finding, will reassess restarting anticoagulation once the clinical picture is clear. #6 underlying history of benign prostatic hypertrophy maintained on Flomax continue. #7. Leukocytosis. Likely secondary to Decadron. UA negative DVT prophylaxis SCDs. GI prophylaxis Pepcid Neurology, oncology and interventional radiology oncology following Biopsy results pending. awaiting biopsy results and oncology recommendation. Prognosis is guarded due to clinical findings and advanced age. patient will need to go to a skilled nursing due to unsteady gait
[2019-09-14 16:25] LABS: Appearance,Urine Clear (Clear); Bilirubin,Urine Negative (Negative); Blood,Urine Negative (Negative); Color,Urine Light Yellow; Glucose,Urine (UA) Negative (Negative); Ketones,Urine Negative (Negative); Leukocyte Esterase,Urine Negative (Negative); Nitrite,Urine Negative (Negative); Protein,Urine Negative (Negative); Specific Gravity,Urine 1.006 (1.001-1.035); Urobilinogen,Urine <2.0 mg/dL (<2.0)
[2019-09-14] MEDS: SODIUM CHLORIDE 0.9% 1,000 ML IV SCH ×2 (18:49→23:57)
--- NOTE | 2019-09-14 19:08 | P.PN ---
Subjective Progress Note Date: 09/14/19 Principal diagnosis: Scot mass Objective - Vital Signs Vital signs: Vital Signs Temp 97.8 F 09/14/19 18:52 Pulse 85 09/14/19 18:52 Resp 18 09/14/19 18:52 BP 121/67 09/14/19 18:52 Pulse Ox 97 09/14/19 18:52 Intake & Output 09/14/19 09/14/19 09/15/19 06:59 18:59 06:59 Intake Total 500 Output Total 500 410 Balance -500 90 Weight 111 kg Intake: Oral 500 Output: Urine 500 410 Other: Voiding Method Urinal Urinal # Voids 2 3 # Bowel Movements 1 - Exam The patient appeared well nourished and normally developed. Vital signs as documented. Head exam is unremarkable. No scleral icterus or corneal arcus noted. Neck is without jugular venous distension, thyromegaly, or carotid bruits. Carotid upstrokes are brisk bilaterally. Lungs are clear to auscultation and percussion. Cardiac exam reveals the PMI to be normally sized and situated. Rhythm is regular. First and second heart sounds normal. No murmurs, rubs or gallops. Abdominal exam reveals normal bowel sounds, no masses, no organomegaly and no aortic enlargement. Extremities are nonedematous and both femoral and pedal pulses are normal. palpable mass in the scar and also mass on the left cheek drooping cheek which has been present for a while - Labs CBC & Chem 7: 09/14/19 06:40 09/14/19 06:40 Labs: Abnormal Lab Results - Last 24 Hours (Table) 09/14/19 09/14/19 Range/Units 06:40 06:40 WBC 12.1 H (3.8-10.6) k/uL Neutrophils # 10.0 H (1.3-7.7) k/uL Sodium 131 L (137-145) mmol/L Chloride 97 L (98-107) mmol/L BUN 29 H (9-20) mg/dL Glucose 126 H (74-99) mg/dL Assessment and Plan Assessment: impression and plan: 1. Mass of scalp, consistent with intracranial neoplasm likely meningioma as per preliminary reports, final pathology pending: - large mass in the scar penetrating into the skull causing destruction of the bone with symptoms, CT finding consistent with brain mass preliminary consistent with likely meningioma. - Large soft tissue mass involving the soft tissue with destruction of the adjacent left parietal calvarium extending into the left parietal lobe measuring 7 cm intracranially. - CT of chest abdomen pelvis negative for malignancy or metastasis. - The patient is currently on steroids, has been evaluated by radiation oncology. Final pathology is pending. Tumor has been slowly growing and neglected for a while. Will likely not benefit from radiation as per radiation oncology notes. - palliative radiation would likely be a possibility. 2. significant weakness fatigue poor ECOG performance, generalized weakness with multiple falls 3. Dehydration history of atrial fibrillation, rate controlled and cardiomegaly, history of BPH 4. leukocytosis secondary to steroids. Thank you for allowing me to participate in the [place] [id number], [address] [place] [address] Office: [phone]
[2019-09-14] MEDS: TAMSULOSIN 0.4 MG CAP.ER.24H PO SCH (20:28)
[2019-09-15 07:12] LABS: Basophils % (A) 0 %; Eosinophils % (A) 0 %; HCT 40.3 % (39.0-53.0); HGB 13.7 gm/dL (13.0-17.5); Lymphocytes # (A) 1.6 k/uL (1.0-4.8); Lymphocytes % (A) 14 %; MCH 31.6 pg (25.0-35.0); MCHC 34.1 g/dL (31.0-37.0); MCV 92.8 fL (80.0-100.0); Mean Platelet Volume 8.6; Monocytes # (A) 0.6 k/uL (0-1.0); Monocytes % (A) 5 %; Neutrophils # (A) 9.6 k/uL (1.3-7.7); Neutrophils % (A) 81 %; Platelet Count 185 k/uL (150-450); RBC 4.34 m/uL (4.30-5.90); RDW 13.9 % (11.5-15.5); WBC 11.9 k/uL (3.8-10.6)
[2019-09-15 07:27] LABS: Albumin 3.7 g/dL (3.5-5.0); Calcium 9.3 mg/dL (8.4-10.2); Potassium 4.6 mmol/L (3.5-5.1); Total Bilirubin 0.9 mg/dL (0.2-1.3); Total Protein 6.8 g/dL (6.3-8.2)
[2019-09-15] MEDS: DEXAMETHASONE SOD PHOSPHATE 4 MG/ML 1 ML VIAL IV SCH ×2 (08:37→17:17)
[2019-09-15] MEDS: POTASSIUM CHLORIDE ER 10 MEQ TAB.ER.PRT PO SCH (08:37)
[2019-09-15] MEDS: FAMOTIDINE 20 MG TAB PO SCH (08:38)
[2019-09-15] MEDS: FUROSEMIDE 40 MG TAB PO SCH (08:38)
[2019-09-15] MEDS: MULTIVITAMINS, THERA 1 EACH TAB PO SCH (08:38)
[2019-09-15] MEDS: METOPROLOL TARTRATE 12.5 MG TAB PO SCH (08:38)
[2019-09-15] MEDS: VIT A,C & E-LUTEIN-MINERALS 1 EACH TAB PO SCH (08:38)
--- NOTE | 2019-09-15 11:05 | P.PN ---
Subjective Progress Note Date: 09/15/19 Grayson Landry is an 88-year-old male who presented to [facility] emergency room with a chief complaint of weakness and multiple falls, he states that he had fallen 5 times in the last 2 weeks, EMS had to be called repeatedly because he was unable to get up and his was unable to help him, patient was also having difficulty getting in and out of his apartment due to having to go up 15 stairs, he noticed that he started having lower extremity swelling in the last few weeks , yesterday his son was visiting him and he was worried about his condition and decided to send him to emergency room for evaluation. Patient was evaluated in the emergency room, chest x-ray revealed evidence of cardiac enlargement which is new from previous evaluation, patient has a lump on the left side of the back of his head which she related to falling and hitting his head in the past however computed tomography scan of the brain was done in the emergency room and revealed evidence of mass with bony destruction. Patient was admitted to medical floor for further evaluation and treatment. On 09/11/2019 patient's alert and oriented 3 resting comfortably in bed. Patient underwent soft tissue biopsy results pending. MRI of the brain has been ordered. Neurology oncology and interventional radiology on consult. Probable palliative treatment to the lesion awaiting final pathology per IR. At this time patient denies chest pain or shortness of breath. Patient denies nausea vomiting or diarrhea. Patient denies any urinary burning or frequency on 09/12/2019 patient is alert and oriented 3 resting comfortably in chair. Biopsy results still pending.at this time patient denies any chest pain or shortness of breath. Patient denies any neurological symptoms denies blurry vision or weakness. Patient denies nausea vomiting or diarrhea. Patient denies any urinary burning or frequency. On 09/13/2019 patient was seen and examined on the medical floor he is alert and oriented 3 in no apparent distress he is complaining of unsteadiness in his gait otherwise he denies any complaints there is no fever or chills no headache or dizziness no chest pain no shortness of breath no cough no nausea or vomiting no abdominal pain no diarrhea no burning with urination no frequency or urgency and no hematuria, no weakness or numbness in any of his extremity no change in vision or in speech. Biopsy result is still pending at this time. on 09/14/2019 patient was seen and examined on the medical floor he is alert and oriented 3 in no apparent distress he is complaining of burning with urination urine analysis ordered, he is still complaining of unsteadiness with his gait, otherwise there is no complaints there is no fever or chills no headache or dizziness no chest pain no shortness of breath no cough no nausea or vomiting no abdominal pain no diarrhea On 09/15/2019 patient's alert and oriented 3. Preliminary pathology per neurology likely meningioma. Patient remains alert and oriented 3. Planning ECF upon discharge for rehab. Awaiting final pathology implant per oncology neurology services. At this time patient denies chest pain or shortness of breath. Patient denies nausea vomiting or diarrhea. Patient denies any urinary burning or frequency Objective - Vital Signs Vital signs: Vital Signs Temp 97.5 F L 09/15/19 07:00 Pulse 72 09/15/19 07:00 Resp 16 09/15/19 07:00 BP 117/59 09/15/19 07:00 Pulse Ox 97 09/15/19 07:00 Intake & Output 09/14/19 09/15/19 09/15/19 18:59 06:59 18:59 Intake Total 500 Output Total 820 400 Balance -320 -400 Weight 110.5 kg Intake: Oral 500 Output: Urine 820 400 Other: Voiding Method Urinal Urinal # Voids 3 1 # Bowel Movements 1 - Exam In general patient is alert and oriented 3 in no apparent distress answering questions appropriately HEENT head normocephalic and atraumatic Neck is supple no JVD no goiter no lymphadenopathy Chest exam reveals a few scattered rhonchi no wheezing Cardiac exam reveals regular heart sounds S1 and S2 no gallops no murmurs Abdomen is soft nontender no hepatosplenomegaly with normal bowel sounds Extremity exam reveals 1+ edema bilaterally no cyanosis or clubbing Neurological examination reveals generalized weakness but no gross focal deficit - Labs CBC & Chem 7: 09/15/19 06:27 09/15/19 06:27 Labs: Abnormal Lab Results - Last 24 Hours (Table) 09/15/19 09/15/19 Range/Units 06:27 06:27 WBC 11.9 H (3.8-10.6) k/uL Neutrophils # 9.6 H (1.3-7.7) k/uL Sodium 130 L (137-145) mmol/L Chloride 95 L (98-107) mmol/L BUN 32 H (9-20) mg/dL Glucose 129 H (74-99) mg/dL Assessment and Plan Assessment: #1 generalized weakness with multiple falls #2 evidence of mild dehydration with elevated BUN at 23 and creatinine at 1.05. Creatinine improving to 0.83 and bun 22 #3 evidence of 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 Bone scan completed showing destructive left parietal mass seen on prior CT has abnormal uptake on bone scan. Abnormal radiotracer foci within the lateral right rib and posterior left 11th rib these are nonspecific and could relate to focal lesions or rib fractures. MRI of the brain has been ordered and reviewed per neurology. Biopsy has been completed results pending. Oncology services are following radiation oncology has been consulted.awaiting pathology for further plan of care. patient has been started on Decadron per oncology services for mass effect on the brain. Preliminary pathology per neurology services meningioma. Per interventional radiology would not significantly benefit from palliative radiation therapy. May require neurosurgical evaluation outpatient for possible resection. Awaiting final pathology results #4 evidence of cardiomegaly on chest x-ray, which is new from before, BNP was mildly elevated at 1270 patient states that he started having lower extremity swelling in the last few weeks at this time will check echocardiogram, continue with oral Lasix. #5 underlying history of atrial fibrillation, heart rate is well-controlled on metoprolol, patient was maintained on Xarelto for stroke prevention, at this time Xarelto is on hold due to multiple falls and due to intracranial finding, will reassess restarting anticoagulation once the clinical picture is clear. Xarelto will be resumed with no immediate plans for intervention #6 underlying history of benign prostatic hypertrophy maintained on Flomax continue. #7. Leukocytosis. Likely secondary to Decadron. UA negative DVT prophylaxis Xarelto. GI prophylaxis Pepcid Neurology, oncology and interventional radiology oncology following Biopsy results pending. Prognosis is guarded due to clinical findings and advanced age. PT OT and social work services consulted. Patient will likely need ECF for rehab upon discharge I performed an examination of the patient and discussed their management with the Nurse Practitioner. I have reviewed the Nurse Practitioner's notes and agree with the documented findings and plan of care
[2019-09-15 14:54] VITALS: BMI 34.9
[2019-09-15] MEDS ORDERED: INFLUENZA VACCINE (6 MOS+) 60 MCG/0.5 ML SYRINGE IM ONE (16:11)
[2019-09-15] MEDS: RIVAROXABAN 15 MG TAB PO SCH (17:17)
[2019-09-15] MEDS: TAMSULOSIN 0.4 MG CAP.ER.24H PO SCH (21:24)
[2019-09-16] MEDS: DEXAMETHASONE SOD PHOSPHATE 4 MG/ML 1 ML VIAL IV SCH ×3 (00:06→16:49)
[2019-09-16 07:14] LABS: Basophils % (A) 0 %; Eosinophils % (A) 0 %; HCT 39.8 % (39.0-53.0); HGB 13.7 gm/dL (13.0-17.5); Lymphocytes # (A) 1.5 k/uL (1.0-4.8); Lymphocytes % (A) 11 %; MCH 31.6 pg (25.0-35.0); MCHC 34.4 g/dL (31.0-37.0); MCV 91.9 fL (80.0-100.0); Mean Platelet Volume 8.4; Monocytes # (A) 0.5 k/uL (0-1.0); Monocytes % (A) 4 %; Neutrophils # (A) 10.9 k/uL (1.3-7.7); Neutrophils % (A) 84 %; Platelet Count 190 k/uL (150-450); RBC 4.33 m/uL (4.30-5.90); RDW 13.9 % (11.5-15.5); WBC 12.9 k/uL (3.8-10.6)
[2019-09-16 07:21] LABS: Albumin 3.6 g/dL (3.5-5.0); Calcium 9.2 mg/dL (8.4-10.2); Potassium 4.5 mmol/L (3.5-5.1); Total Protein 6.7 g/dL (6.3-8.2)
[2019-09-16] MEDS: METOPROLOL TARTRATE 12.5 MG TAB PO SCH (07:48)
[2019-09-16] MEDS: MULTIVITAMINS, THERA 1 EACH TAB PO SCH (07:48)
[2019-09-16] MEDS: FAMOTIDINE 20 MG TAB PO SCH (07:48)
[2019-09-16] MEDS: FUROSEMIDE 40 MG TAB PO SCH (07:49)
[2019-09-16] MEDS: POTASSIUM CHLORIDE ER 10 MEQ TAB.ER.PRT PO SCH (07:49)
[2019-09-16] MEDS: VIT A,C & E-LUTEIN-MINERALS 1 EACH TAB PO SCH (07:50)
--- NOTE | 2019-09-16 10:50 | P.PN ---
Subjective Progress Note Date: 09/16/19 Grayson Landry is an 88-year-old male who presented to [facility] emergency room with a chief complaint of weakness and multiple falls, he states that he had fallen 5 times in the last 2 weeks, EMS had to be called repeatedly because he was unable to get up and his was unable to help him, patient was also having difficulty getting in and out of his apartment due to having to go up 15 stairs, he noticed that he started having lower extremity swelling in the last few weeks , yesterday his son was visiting him and he was worried about his condition and decided to send him to emergency room for evaluation. Patient was evaluated in the emergency room, chest x-ray revealed evidence of cardiac enlargement which is new from previous evaluation, patient has a lump on the left side of the back of his head which she related to falling and hitting his head in the past however computed tomography scan of the brain was done in the emergency room and revealed evidence of mass with bony destruction. Patient was admitted to medical floor for further evaluation and treatment. On 09/11/2019 patient's alert and oriented 3 resting comfortably in bed. Patient underwent soft tissue biopsy results pending. MRI of the brain has been ordered. Neurology oncology and interventional radiology on consult. Probable palliative treatment to the lesion awaiting final pathology per IR. At this time patient denies chest pain or shortness of breath. Patient denies nausea vomiting or diarrhea. Patient denies any urinary burning or frequency on 09/12/2019 patient is alert and oriented 3 resting comfortably in chair. Biopsy results still pending.at this time patient denies any chest pain or shortness of breath. Patient denies any neurological symptoms denies blurry vision or weakness. Patient denies nausea vomiting or diarrhea. Patient denies any urinary burning or frequency. On 09/13/2019 patient was seen and examined on the medical floor he is alert and oriented 3 in no apparent distress he is complaining of unsteadiness in his gait otherwise he denies any complaints there is no fever or chills no headache or dizziness no chest pain no shortness of breath no cough no nausea or vomiting no abdominal pain no diarrhea no burning with urination no frequency or urgency and no hematuria, no weakness or numbness in any of his extremity no change in vision or in speech. Biopsy result is still pending at this time. on 09/14/2019 patient was seen and examined on the medical floor he is alert and oriented 3 in no apparent distress he is complaining of burning with urination urine analysis ordered, he is still complaining of unsteadiness with his gait, otherwise there is no complaints there is no fever or chills no headache or dizziness no chest pain no shortness of breath no cough no nausea or vomiting no abdominal pain no diarrhea On 09/15/2019 patient's alert and oriented 3. Preliminary pathology per neurology likely meningioma. Patient remains alert and oriented 3. Planning ECF upon discharge for rehab. Awaiting final pathology implant per oncology neurology services. At this time patient denies chest pain or shortness of breath. Patient denies nausea vomiting or diarrhea. Patient denies any urinary burning or frequency on 09/16/2019 patient is alert and oriented 3. In-depth discussion held with patient and family yesterday and updated on plan of care. Final pathology reporting meningioma. Sodium this a.m. low at 129. Will decrease Lasix to 20 daily and start patient on normal saline at 50. Elevated heart rate documented at 7 AM of 143. Patient does have known history of atrial fibrillation. Per nursing patient at this time was upset. Repeat heart rate 66. Patient denies any chest pain or shortness of breath. denies any nausea vomiting or diarrhea. Denies any urinary burning or frequency Objective - Vital Signs Vital signs: Vital Signs Temp 98.2 F 09/16/19 07:00 Pulse 66 09/16/19 10:14 Resp 18 09/16/19 07:00 BP 100/60 09/16/19 07:00 Pulse Ox 96 09/16/19 07:00 Intake & Output 09/15/19 09/16/19 09/16/19 18:59 06:59 18:59 Intake Total 980 Output Total 720 300 Balance 260 -300 Weight 110.5 kg 110 kg Intake: Oral 980 Output: Urine 720 300 Other: Voiding Method Urinal # Voids 2 2 # Bowel Movements 1 - Exam In general patient is alert and oriented 3 in no apparent distress answering questions appropriately HEENT head normocephalic and atraumatic Neck is supple no JVD no goiter no lymphadenopathy Chest exam reveals a few scattered rhonchi no wheezing Cardiac exam reveals regular heart sounds S1 and S2 no gallops no murmurs Abdomen is soft nontender no hepatosplenomegaly with normal bowel sounds Extremity exam reveals 1+ edema bilaterally no cyanosis or clubbing Neurological examination reveals generalized weakness but no gross focal deficit - Labs CBC & Chem 7: 09/16/19 06:28 09/16/19 06:28 Labs: Abnormal Lab Results - Last 24 Hours (Table) 09/16/19 09/16/19 Range/Units 06:28 06:28 WBC 12.9 H (3.8-10.6) k/uL Neutrophils # 10.9 H (1.3-7.7) k/uL Sodium 129 L (137-145) mmol/L Chloride 94 L (98-107) mmol/L BUN 31 H (9-20) mg/dL Glucose 137 H (74-99) mg/dL Assessment and Plan Assessment: #1 generalized weakness with multiple falls #2 evidence of mild dehydration with elevated BUN at 23 and creatinine at 1.05. Creatinine improving to 0.83 and bun 22 #3 evidence of 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 Bone scan completed showing destructive left parietal mass seen on prior CT has abnormal u ptake on bone scan. Abnormal radiotracer foci within the lateral right rib and posterior left 11th rib these are nonspecific and could relate to focal lesions or rib fractures. MRI of the brain has been ordered and reviewed per neurology. Biopsy has been completed results pending. Oncology services are following radiation oncology has been consulted.awaiting pathology for further plan of care. patient has been started on Decadron per oncology services for mass effect on the brain. Preliminary pathology per neurology services meningioma. Per interventional radiology would not significantly benefit from palliative radiation therapy. May require neurosurgical evaluation outpatient for possible resection. final pathology showing meningioma, meningothelial Type, grade 1 #4 evidence of cardiomegaly on chest x-ray, which is new from before, BNP was mildly elevated at 1270. 2-D echo completed showing EF of 50-55%. continue with oral Lasix. #5 underlying history of atrial fibrillation, heart rate is well-controlled on metoprolol, patient was maintained on Xarelto for stroke prevention, at this time Xarelto is on hold due to multiple falls and due to intracranial finding, will reassess restarting anticoagulation once the clinical picture is clear. Xarelto will be resumed with no immediate plans for intervention #6 underlying history of benign prostatic hypertrophy maintained on Flomax continue. #7. Leukocytosis. Likely secondary to Decadron. UA negative #8. Hyponatremia. Sodium 129. Lasix decreased to 20 daily. Normal saline at 50 DVT prophylaxis Xarelto. GI prophylaxis Pepcid Neurology, oncology and interventional radiology oncology following Biopsy results pending. Prognosis is guarded due to clinical findings and advanced age. PT OT and social work services consulted. Patient will likely need ECF for rehab upon discharge I performed an examination of the patient and discussed their management with the Nurse Practitioner. I have reviewed the Nurse Practitioner's notes and agree with the documented findings and plan of care
[2019-09-16] MEDS: SODIUM CHLORIDE 0.9% 1,000 ML IV SCH (12:19)
--- NOTE | 2019-09-16 12:48 | CDI ---
Documentation Clarification Form Date: 09/16/2019 12:23:55 PM From: Luli Wilkes RN CCDS Admit Date: 09/09/2019 11:59:00 PM Patient Name: Grayson Landry Visit Number: [id number] Discharge Date: ATTENTION: The Clinical Documentation Specialists (CDI) and [facility] Coding Staff appreciate your assistance in clarifying documentation. Please respond to the clarification below the line at the bottom and electronically sign. The CDI & [facility] Coding staff will review the response and follow-up if needed. Please note: Queries are made part of the Legal Health Record. If you have any questions, please contact the author of this message via ITS. Dr. Eloise Ozuna The final diagnosis of the pathology report states: Scalp Lesion, core biopsy: Meningioma, meningothelial type, Grade 1. Pathology Report notes: Logistics System Engineer material from this case was also reviewed by Dr. Cristobal Agee, who agrees with the diagnosis of malignancy. Documentation states: Your Progress Note Final pathology reporting meningioma. Patient history/risk factors: Clinical Indicators: BRAIN MRI Destructive left parietal mass involving the soft tissues, parietal calvarium and the intracranial left parietal lobe. There is destruction of the parietal bone posteriorly as well as involvement of the adjacent dural venous sinus is suggestive of tumor invasion. Intracranial protion of the neoplasm measures 4.5 x 6.7 x 5.3cm. 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 Neurology Meningioma Interventional Radiology would not significantly benefit from palliative radiation therapy Per your progress note 09/16 may require neurosurgical evaluation outpt for possible resection. In your professional opinion, do you agree with the pathology report specifying Meningioma as Malignant? * Yes * No * Other (please specify) * Unable to determine (Last Revision: July 2017) MTDD
--- NOTE | 2019-09-16 13:14 | CDI ---
Documentation Clarification Form Date: 09/16/2019 12:51:30 PM From: uLli Wilkes RN CCDS Admit Date: 09/09/2019 11:59:00 PM Patient Name: Grayson Landry Visit Number: [id number] Discharge Date: ATTENTION: The Clinical Documentation Specialists (CDI) and [facility] Coding Staff appreciate your assistance in clarifying documentation. Please respond to the clarification below the line at the bottom and electronically sign. The CDI & [facility] Coding staff will review the response and follow-up if needed. Please note: Queries are made part of the Legal Health Record. If you have any questions, please contact the author of this message via ITS. Dr. Eloise Ozuna Evidence of cardiomegaly on chest x-ray, which is new from before, BNP is mildly elevated at 1270 patient states that he started having lower extremity swelling in the last few weeks. Documented in your progress note 09/15/2019 History/Risk Factors: 88-year-old male presented to ed with weakness with multiple falls. Medical history Atrial fibrillation; Clinical Indicators: VS/Pulse OX: 09/09 131/65 65 98.7 20 99% ra BNP: 09/09 - 1270 Echocardiogram Results:09/10/2019 Mild concentric left ventricular hypertrophy. Overall left ventricular systolic function is low normal with an EF between 50- 55%. Home medication Metoprolol Tartrate 12.5mg po daily: Lasix 40mg po daily Chest X Ray:09/09 new cardiac enlargement in comparison to prior 2010 echo Treatment: 09/10 thru 09/16 Lasix 40mg po daily; Changed to 20mg po daily starting 09/17 09/10 Metoprolol Tartrate 12.5mg po daily In your professional opinion, can you please clarify the clinical significance of diagnostic testing and treatment it cannot be assumed or coded without physician documentation of significance if any. * Chronic Diastolic Heart Failure: * Chronic Systolic & Diastolic Heart Failure * Heart Failure Ruled Out * Unable to Determine * Other, please specify (Last Revision: December 2017) chronic diastolic heart failure MTDD
[2019-09-16] MEDS: RIVAROXABAN 15 MG TAB PO SCH (16:49)
[2019-09-16] MEDS: TAMSULOSIN 0.4 MG CAP.ER.24H PO SCH (20:00)
[2019-09-17] MEDS: DEXAMETHASONE SOD PHOSPHATE 4 MG/ML 1 ML VIAL IV SCH ×3 (00:06→15:46)
[2019-09-17] MEDS: SODIUM CHLORIDE 0.9% 1,000 ML IV SCH (05:13)
[2019-09-17 07:42] LABS: Basophils % (A) 0 %; Eosinophils % (A) 0 %; HCT 39.2 % (39.0-53.0); HGB 13.6 gm/dL (13.0-17.5); Lymphocytes # (A) 1.6 k/uL (1.0-4.8); Lymphocytes % (A) 10 %; MCH 31.9 pg (25.0-35.0); MCHC 34.7 g/dL (31.0-37.0); MCV 91.9 fL (80.0-100.0); Mean Platelet Volume 8.5; Monocytes # (A) 0.6 k/uL (0-1.0); Monocytes % (A) 4 %; Neutrophils # (A) 12.9 k/uL (1.3-7.7); Neutrophils % (A) 85 %; Platelet Count 191 k/uL (150-450); RBC 4.26 m/uL (4.30-5.90); RDW 13.9 % (11.5-15.5); WBC 15.2 k/uL (3.8-10.6)
[2019-09-17 07:50] VITALS: RESP 15
[2019-09-17 07:58] LABS: Albumin 3.4 g/dL (3.5-5.0); Calcium 8.9 mg/dL (8.4-10.2); Potassium 4.4 mmol/L (3.5-5.1); Total Bilirubin 0.9 mg/dL (0.2-1.3); Total Protein 6.4 g/dL (6.3-8.2)
--- NOTE | 2019-09-17 08:06 | CDI ---
Documentation Clarification Form Date: 09/16/2019 12:23:55 PM From: Luli Wilkes RN CCDS Admit Date: 09/09/2019 11:59:00 PM Patient Name: Grayson Landry Visit Number: [id number] Discharge Date: ATTENTION: The Clinical Documentation Specialists (CDI) and [facility] Coding Staff appreciate your assistance in clarifying documentation. Please respond to the clarification below the line at the bottom and electronically sign. The CDI & [facility] Coding staff will review the response and follow-up if needed. Please note: Queries are made part of the Legal Health Record. If you have any questions, please contact the author of this message via ITS. Dr. Eloise Ozuna The final diagnosis of the pathology report states: Scalp Lesion, core biopsy: Meningioma, meningothelial type, Grade 1. Pathology Report notes: Trumpet Teacher material from this case was also reviewed by Dr. Cristobal Agee, who agrees with the diagnosis of malignancy. Documentation states: Your Progress Note Final pathology reporting meningioma. Patient history/risk factors: Clinical Indicators: BRAIN MRI Destructive left parietal mass involving the soft tissues, parietal calvarium and the intracranial left parietal lobe. There is destruction of the parietal bone posteriorly as well as involvement of the adjacent dural venous sinus is suggestive of tumor invasion. Intracranial protion of the neoplasm measures 4.5 x 6.7 x 5.3cm. 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 Neurology Meningioma Interventional Radiology would not significantly benefit from palliative radiation therapy Per your progress note 09/16 may require neurosurgical evaluation outpt for possible resection. In your professional opinion, do you agree with the pathology report specifying Meningioma as Malignant? * Yes * No * Other (please specify) * Unable to determine (Last Revision: July 2017) No meninogioma MTDD
[2019-09-17] MEDS: FAMOTIDINE 20 MG TAB PO SCH (08:52)
[2019-09-17] MEDS: VIT A,C & E-LUTEIN-MINERALS 1 EACH TAB PO SCH (08:52)
[2019-09-17] MEDS: METOPROLOL TARTRATE 12.5 MG TAB PO SCH (08:52)
[2019-09-17] MEDS: MULTIVITAMINS, THERA 1 EACH TAB PO SCH (08:52)
[2019-09-17] MEDS: POTASSIUM CHLORIDE ER 10 MEQ TAB.ER.PRT PO SCH (08:53)
[2019-09-17] MEDS ORDERED: FUROSEMIDE 20 MG TAB PO SCH (09:00)
[2019-09-17 13:41] VITALS: BP 120/71; PULSE 68; TEMP 98
--- NOTE | 2019-09-17 14:17 | P.DS ---
Providers Date of admission: 09/09/19 23:59 Expected date of discharge: 09/17/19 Attending physician: Eloise Ozuna Consults: 09/10/19 07:29 Consult Physician Routine Consulting Provider: Hubert Joe Consult Reason/Comments: brain mass Do you want consulting provider notified?: Yes 09/10/19 07:31 Consult Physician Routine Consulting Provider: Mohit Westfall Consult Reason/Comments: brain mass Do you want consulting provider notified?: Yes 09/10/19 09:17 Consult Physician Routine Consulting Provider: William Allen Consult Reason/Comments: Left scalp mass, need for palliative RT post Bx Do you want consulting provider notified?: Yes Primary care physician: Eloisefabricio Ozuna [facility] Course: discharge diagnosis #1 generalized weakness with multiple falls #2 evidence of mild dehydration with elevated BUN at 23 and creatinine at 1.05. Creatinine improving to 0.83 and bun 22 #3 evidence of 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 Bone scan completed showing destructive left parietal mass seen on prior CT has abnormal uptake on bone scan. Abnormal radiotracer foci within the lateral right rib and posterior left 11th rib these are nonspecific and could relate to focal lesions or rib fractures. MRI of the brain has been ordered and reviewed per neurology. Biopsy has been completed results pending. Oncology services are following radiation oncology has been consulted.awaiting pathology for further plan of care. patient has been started on Decadron per oncology services for mass effect on the brain. Preliminary pathology per neurology services meningioma. Per interventional radiology would not significantly benefit from palliative radiation therapy. May require neurosurgical evaluation outpatient for possible resection. final pathology showing meningioma, meningothelial Type, grade 1.discussed case with neurology ervices. Decadron should be tapered upon discharge. Patient may follow-up with neurosurgery if patient and family want to proceed with surgical intervention #4 evidence of cardiomegaly on chest x-ray, which is new from before, BNP was mildly elevated at 1270. 2-D echo completed showing EF of 50-55%. continue with oral Lasix.Lasix has been decreased to 20 mg #5 underlying history of atrial fibrillation, heart rate is well-controlled on metoprolol, patient was maintained on Xarelto for stroke prevention, at this time Xarelto is on hold due to multiple falls and due to intracranial finding, will reassess restarting anticoagulation once the clinical picture is clear. Xarelto will be resumed with no immediate plans for intervention #6 underlying history of benign prostatic hypertrophy maintained on Flomax continue. #7. Leukocytosis. Likely secondary to Decadron. UA negative #8. Hyponatremia. Sodium 129. Lasix decreased to 20 daily. Normal saline at 50. sodium improving 130. Patient will be DC'd on lower dose of Lasix. Patient will be monitored outpatient Hospital course Grayson Landry is an 88-year-old male who presented to [facility] emergency room with a chief complaint of weakness and multiple falls, he states that he had fallen 5 times in the last 2 weeks, EMS had to be called repeatedly because he was unable to get up and his was unable to help him, patient was also having difficulty getting in and out of his apartment due to having to go up 15 stairs, he noticed that he started having lower extremity swelling in the last few weeks , yesterday his son was visiting him and he was worried about his condition and decided to send him to emergency room for evaluation. Patient was evaluated in the emergency room, chest x-ray revealed evidence of cardiac enlargement which is new from previous evaluation, patient has a lump on the left side of the back of his head which she related to falling and hitting his head in the past however computed tomography scan of the brain was done in the emergency room and revealed evidence of mass with bony destruction. Patient was admitted to medical floor for further evaluation and treatment. On 09/11/2019 patient's alert and oriented 3 resting comfortably in bed. Patient underwent soft tissue biopsy results pending. MRI of the brain has been ordered. Neurology oncology and interventional radiology on consult. Probable palliative treatment to the lesion awaiting final pathology per IR. At this time patient denies chest pain or shortness of breath. Patient denies nausea vomiting or diarrhea. Patient denies any urinary burning or frequency on 09/12/2019 patient is alert and oriented 3 resting comfortably in chair. Biopsy results still pending.at this time patient denies any chest pain or shortness of breath. Patient denies any neurological symptoms denies blurry vision or weakness. Patient denies nausea vomiting or diarrhea. Patient denies any urinary burning or frequency. On 09/13/2019 patient was seen and examined on the medical floor he is alert and oriented 3 in no apparent distress he is complaining of unsteadiness in his gait otherwise he denies any complaints there is no fever or chills no headache or dizziness no chest pain no shortness of breath no cough no nausea or vomiting no abdominal pain no diarrhea no burning with urination no frequency or urgency and no hematuria, no weakness or numbness in any of his extremity no change in vision or in speech. Biopsy result is still pending at this time. on 09/14/2019 patient was seen and examined on the medical floor he is alert and oriented 3 in no apparent distress he is complaining of burning with urination urine analysis ordered, he is still complaining of unsteadiness with his gait, otherwise there is no complaints there is no fever or chills no headache or dizziness no chest pain no shortness of breath no cough no nausea or vomiting no abdominal pain no diarrhea On 09/15/2019 patient's alert and oriented 3. Preliminary pathology per neurology likely meningioma. Patient remains alert and oriented 3. Planning ECF upon discharge for rehab. Awaiting final pathology implant per oncology neurology services. At this time patient denies chest pain or shortness of breath. Patient denies nausea vomiting or diarrhea. Patient denies any urinary burning or frequency on 09/16/2019 patient is alert and oriented 3. In-depth discussion held with patient and family yesterday and updated on plan of care. Final pathology reporting meningioma. Sodium this a.m. low at 129. Will decrease Lasix to 20 daily and start patient on normal saline at 50. Elevated heart rate documented at 7 AM of 143. Patient does have known history of atrial fibrillation. Per nursing patient at this time was upset. Repeat heart rate 66. Patient denies any chest pain or shortness of breath. denies any nausea vomiting or diarrhea. Denies any urinary burning or frequency on 09/17/2019 patient is alert and oriented 3. Discussed case with neurology And oncology services. Recommendation includes possible neurosurgical intervention which can be done outpatient if patient and family wishes. This was discussed with family and patient at bedside. Per neurology okay to taper Decadron outpatient. 4 mg twice a day for 5 days 2 mg twice a day for 5 days and 2 mg daily for 5 days and DC. Patient will be DC'd to [facility] for physical therapy. At this time patient denies chest pain or shortness of breath. Patient denies nausea vomiting or diarrhea. Patient denies any urinary burning or frequency. Sodium is 130 today. Patient will be DC'd on lower dose of Lasix and fluid restrictions will continue to monitor sodium level closely outpatient. I performed an examination of the patient and discussed their management with the Nurse Practitioner. I have reviewed the Nurse Practitioner's notes and agree with the documented findings and plan of care Patient Condition at Discharge: Stable Plan - Discharge Summary Discharge Rx Participant: Yes New Discharge Prescriptions: New Dexamethasone [Decadron] 4 mg PO BID 15 Days #20 tablet Furosemide [Lasix] 20 mg PO DAILY tab Continue Macular Vitamin [id number] Tablet 1 tab PO DAILY Tamsulosin [Flomax] 0.4 mg PO HS Rivaroxaban [Xarelto] 15 mg PO W/SUPPER Potassium Chloride ER [K-Dur 10] 10 meq PO DAILY Multivitamins, Thera [Multivitamin (formulary)] 1 tab PO DAILY Metoprolol Tartrate [Lopressor] 12.5 mg PO DAILY Viactiv [id number] Chewable Tablet 2 tab PO BID Discontinued Furosemide [Lasix] 40 mg PO DAILY Discharge Medication List Macular Vitamin [id number] Tablet 1 tab PO DAILY 09/09/19 [History] Metoprolol Tartrate [Lopressor] 12.5 mg PO DAILY 09/09/19 [History] Multivitamins, Thera [Multivitamin (formulary)] 1 tab PO DAILY 09/09/19 [History] Potassium Chloride ER [K-Dur 10] 10 meq PO DAILY 09/09/19 [History] Rivaroxaban [Xarelto] 15 mg PO W/SUPPER 09/09/19 [History] Tamsulosin [Flomax] 0.4 mg PO HS 09/09/19 [History] Viactiv [id number] Chewable Tablet 2 tab PO BID 09/09/19 [History] Dexamethasone [Decadron] 4 mg PO BID 15 Days #20 tablet 09/17/19 [Rx] Furosemide [Lasix] 20 mg PO DAILY tab 09/17/19 [Rx] Follow up Appointment(s)/Referral(s): Eloise Ozuna MD [Primary Care Provider] - 1-2 days Activity/Diet/Wound Care/Special Instructions: activity as tolerated Diet heart healthy 1200 mL fluid restriction CBC and CMP on Sunday, 09/19 Discharge Disposition: TRANSFER TO SNF/ECF
[2019-09-17] MEDS: RIVAROXABAN 15 MG TAB PO SCH (17:05)
--- NOTE | 2019-10-06 09:42 | CDI ---
Documentation Clarification Form Date: 09/16/2019 12:23:55 PM From: Luli Wilkes RN CCDS Admit Date: 09/09/2019 11:59:00 PM Patient Name: Grayson Landry Visit Number: [id number] Discharge Date: ATTENTION: The Clinical Documentation Specialists (CDI) and [facility] Coding Staff appreciate your assistance in clarifying documentation. Please respond to the clarification below the line at the bottom and electronically sign. The CDI & [facility] Coding staff will review the response and follow-up if needed. Please note: Queries are made part of the Legal Health Record. If you have any questions, please contact the author of this message via ITS. Dr. Eloise Ozuna The final diagnosis of the pathology report states: Scalp Lesion, core biopsy: Meningioma, meningothelial type, Grade 1. Pathology Report notes: Utility Operator material from this case was also reviewed by Dr. Cristobal Agee, who agrees with the diagnosis of malignancy. Documentation states: Your Progress Note Final pathology reporting meningioma. Patient history/risk factors: Clinical Indicators: BRAIN MRI Destructive left parietal mass involving the soft tissues, parietal calvarium and the intracranial left parietal lobe. There is destruction of the parietal bone posteriorly as well as involvement of the adjacent dural venous sinus is suggestive of tumor invasion. Intracranial protion of the neoplasm measures 4.5 x 6.7 x 5.3cm. 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 Neurology Meningioma Interventional Radiology would not significantly benefit from palliative radiation therapy Per your progress note 09/16 may require neurosurgical evaluation outpt for possible resection. In your professional opinion, do you agree with the pathology report specifying Meningioma as Malignant? * Yes * No * Other (please specify) * Unable to determine (Last Revision: July 2017) Yes MTDD
== END 2019-09-17 18:08 | DRG 55 ==
LOC: EC 15:35 → OBSVTOIN 23:59 → 4SSUR 23:59
PROVIDERS: ADMIT Internal Medicine; ATTEND Internal Medicine
PROC: 0HB0XZX Excision of Scalp Skin, External Approach, Diagnostic (ICD-10-PCS; principal; 2019-09-10)
DX: C70.0 Malignant neoplasm of cerebral meninges (principal); E87.1 Hypo-osmolality and hyponatremia; I50.32 Chronic diastolic (congestive) heart failure; D72.829 Elevated white blood cell count, unspecified; E86.0 Dehydration; H53.469 Homonymous bilateral field defects, unspecified side; I11.9 Hypertensive heart disease without heart failure; I45.10 Unspecified right bundle-branch block; I48.91 Unspecified atrial fibrillation; J44.9 Chronic obstructive pulmonary disease, unspecified; N40.0 Benign prostatic hyperplasia without lower urinary tract symptoms; R29.6 Repeated falls; R62.7 Adult failure to thrive; T38.0X5A Adverse effect of glucocorticoids and synthetic analogues, initial encounter; Z51.5 Encounter for palliative care; Z79.01 Long term (current) use of anticoagulants; Z79.899 Other long term (current) drug therapy; Z80.42 Family history of malignant neoplasm of prostate; Z83.3 Family history of diabetes mellitus; Z91.81 History of falling
CPT/HCPCS: 20206; 36415; 70450; 70553; 71046; 71260; 74177; 76942; 78306; 80053; 81003; 83605; 83735; 83880; 83883; 84153; 84154; 84165; 84443; 84484; 85025; 85610; 85730; 86334; 88305; 88341; 88342; 90686; 93005; 93306; 96374; 99285

== ENCOUNTER 2019-10-13 08:27 | Inpatient (IN) | payer MEDICARE ==
[2019-10-13] MEDS ORDERED: SODIUM CHLORIDE 0.9% 1,000 ML IV STA (08:42)
--- NOTE | 2019-10-13 08:50 | ED ---
General Adult HPI - General Chief complaint: Weakness Stated complaint: weakness Time Seen by Provider: 10/13/19 08:28 Source: patient, EMS, RN notes reviewed Mode of arrival: EMS Limitations: no limitations - History of Present Illness Initial comments: Patient is a pleasant 89-year-old male presenting to the emergency department for generalized weakness. Patient was recently discharged from our would. Patient went home and did okay for a couple of days however did have a couple of falls, no injury. Today patient was too weak to get out of bed. Weakness is diffuse, more so in the legs. Patient is a poor historian and states there is no complaints. Majority of both and history is taken from family. 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 - Related Data Home Medications Medication Instructions Recorded Confirmed Macular Vitamin [id number] 1 tab PO DAILY 09/09/19 09/09/19 Tablet Metoprolol Tartrate [Lopressor] 12.5 mg PO DAILY 09/09/19 09/09/19 Multivitamins, Thera [Multivitamin 1 tab PO DAILY 09/09/19 09/09/19 (formulary)] Potassium Chloride ER [K-Dur 10] 10 meq PO DAILY 09/09/19 09/09/19 Rivaroxaban [Xarelto] 15 mg PO W/SUPPER 09/09/19 09/09/19 Tamsulosin [Flomax] 0.4 mg PO HS 09/09/19 09/09/19 Viactiv [id number] 2 tab PO BID 09/09/19 09/09/19 Chewable Tablet Previous Rx's Medication Instructions Recorded Dexamethasone [Decadron] 4 mg PO BID 15 Days #20 tablet 09/17/19 Furosemide [Lasix] 20 mg PO DAILY tab 09/17/19 Allergies Allergy/AdvReac Type Severity Reaction Status Date / Time No Known Allergies Allergy Verified 10/13/19 08:28 Review of Systems ROS Statement: Those systems with pertinent positive or pertinent negative responses have been documented in the HPI. ROS Other: All systems not noted in ROS Statement are negative. Constitutional: Denies: fever Eyes: Denies: eye pain ENT: Denies: ear pain Respiratory: Denies: cough, dyspnea Cardiovascular: Denies: chest pain Endocrine: Reports: fatigue Gastrointestinal: Denies: abdominal pain Genitourinary: Denies: dysuria Musculoskeletal: Denies: back pain Skin: Denies: rash Neurological: Denies: weakness Past Medical History Past Medical History: Atrial Fibrillation, Prostate Disorder, Skin Disorder Additional Past Medical History / Comment(s): BPH; CARDIAC DYSRHTYMIA NOS; CERVICAL RADICULOPATHY; ROSACEA; BENIGN ESSENTIAL HYPERTENSION; ATRIAL FIBRILLATION; MICROSCOPIC HEMATURIA; SEE CHART REPORT FROM [facility] OFFICE. History of Any Multi-Drug Resistant Organisms: None Reported Past Surgical History: Orthopedic Surgery Additional Past Surgical History / Comment(s): left ankle fx repair, cataract removal Past Anesthesia/Blood Transfusion Reactions: No Reported Reaction Past Psychological History: No Psychological Hx Reported Smoking Status: Never smoker Past Alcohol Use History: None Reported Past Drug Use History: None Reported - Past Family History Father Family Medical History: Prostate Disorder Additional Family Medical History / Comment(s): MALIGNANT TUMOR OF PROSTATE Mother Family Medical History: Diabetes Mellitus Additional Family Medical History / Comment(s): DM II General Exam Limitations: no limitations General appearance: alert, in no apparent distress Head exam: Present: other (Large left parietal mass, approximately 4 cm, no ntender) Eye exam: Present: normal appearance, PERRL ENT exam: Present: normal oropharynx Neck exam: Present: normal inspection Respiratory exam: Present: normal lung sounds bilaterally Cardiovascular Exam: Present: tachycardia, irregular rhythm GI/Abdominal exam: Present: soft. Absent: distended, tenderness Extremities exam: Present: pedal edema. Absent: calf tenderness Neurological exam: Present: alert. Absent: motor sensory deficit Expanded Patient oriented to: Present: person. Absent: place, time Speech: Present: fluid speech Psychiatric exam: Present: normal affect, normal mood Skin exam: Present: normal color Course Vital Signs 10/13/19 08:28 Temperature 97.9 F Pulse Rate 127 H Respiratory 18 Rate Blood Pressure 98/72 O2 Sat by Pulse 97 Oximetry - Reevaluation(s) Reevaluation #1: 10/13/19 08:50 Age is placed on surveillance monitor secondary to history of atrial fibrillation and to monitor for rate and arrhythmia. Patient is in atrial fibrillation with rate varying between 80 and 1:30. EKG Findings - EKG Comments: EKG Findings:: A. fib with RVR, rate 109. QRS 126. QT 334. QTC 449. Left axis. Right bundle branch block. No acute ST change. Medical Decision Making - Medical Decision Making Patient reevaluated and resting comfortably in bed. Patient and family updated on results and plan. Case was discussed in detail with Dr. Ozuna, who will admit his patient. Family is happy to have social worker masters on board. - Lab Data Result diagrams: 10/13/19 08:40 10/13/19 08:40 Lab Results 10/13/19 10/13/19 10/13/19 Range/Units 08:40 08:40 08:40 WBC 11.1 H (3.8-10.6) k/uL RBC 4.09 L (4.30-5.90) m/uL Hgb 12.7 L (13.0-17.5) gm/dL Hct 38.3 L (39.0-53.0) % MCV 93.7 (80.0-100.0) fL MCH 31.2 (25.0-35.0) pg MCHC 33.3 (31.0-37.0) g/dL RDW 14.1 (11.5-15.5) % Plt Count 254 (150-450) k/uL Neutrophils % 77 % Lymphocytes % 16 % Monocytes % 4 % Eosinophils % 1 % Basophils % 1 % Neutrophils # 8.5 H (1.3-7.7) k/uL Lymphocytes # 1.7 (1.0-4.8) k/uL Monocytes # 0.5 (0-1.0) k/uL Eosinophils # 0.1 (0-0.7) k/uL Basophils # 0.1 (0-0.2) k/uL PT (9.0-12.0) sec INR (<1.2) APTT (22.0-30.0) sec Sodium 138 (137-145) mmol/L Potassium 4.1 (3.5-5.1) mmol/L Chloride 103 (98-107) mmol/L Carbon Dioxide 27 (22-30) mmol/L Anion Gap 8 mmol/L BUN 26 H (9-20) mg/dL Creatinine 0.86 (0.66-1.25) mg/dL Est GFR (CKD-EPI)AfAm 89 (>60 ml/min/1.73 sqM) Est GFR (CKD-EPI)NonAf 77 (>60 ml/min/1.73 sqM) Glucose 100 H (74-99) mg/dL Plasma Lactic Acid Raffaele 1.6 (0.7-2.0) mmol/L Calcium 9.1 (8.4-10.2) mg/dL Total Bilirubin 0.7 (0.2-1.3) mg/dL AST 28 (17-59) U/L ALT 26 (4-49) U/L Alkaline Phosphatase 60 (38-126) U/L Troponin I (0.000-0.034) ng/mL Total Protein 6.6 (6.3-8.2) g/dL Albumin 3.4 L (3.5-5.0) g/dL Urine Color Urine Appearance (Clear) Urine pH (5.0-8.0) Ur Specific [place] (1.001-1.035) Urine Protein (Negative) Urine Glucose (UA) (Negative) Urine Ketones (Negative) Urine Blood (Negative) Urine Nitrite (Negative) Urine Bilirubin (Negative) Urine Urobilinogen (<2.0) mg/dL Ur Leukocyte Esterase (Negative) 10/13/19 10/13/19 10/13/19 Range/Units 08:40 08:40 08:40 WBC (3.8-10.6) k/uL RBC (4.30-5.90) m/uL Hgb (13.0-17.5) gm/dL Hct (39.0-53.0) % MCV (80.0-100.0) fL MCH (25.0-35.0) pg MCHC (31.0-37.0) g/dL RDW (11.5-15.5) % Plt Count (150-450) k/uL Neutrophils % % Lymphocytes % % Monocytes % % Eosinophils % % Basophils % % Neutrophils # (1.3-7.7) k/uL Lymphocytes # (1.0-4.8) k/uL Monocytes # (0-1.0) k/uL Eosinophils # (0-0.7) k/uL Basophils # (0-0.2) k/uL PT 11.0 (9.0-12.0) sec INR 1.0 (<1.2) APTT 23.8 (22.0-30.0) sec Sodium (137-145) mmol/L Potassium (3.5-5.1) mmol/L Chloride (98-107) mmol/L Carbon Dioxide (22-30) mmol/L Anion Gap mmol/L BUN (9-20) mg/dL Creatinine (0.66-1.25) mg/dL Est GFR (CKD-EPI)AfAm (>60 ml/min/1.73 sqM) Est GFR (CKD-EPI)NonAf (>60 ml/min/1.73 sqM) Glucose (74-99) mg/dL Plasma Lactic Acid Raffaele (0.7-2.0) mmol/L Calcium (8.4-10.2) mg/dL Total Bilirubin (0.2-1.3) mg/dL AST (17-59) U/L ALT (4-49) U/L Alkaline Phosphatase (38-126) U/L Troponin I 0.055 H* (0.000-0.034) ng/mL Total Protein (6.3-8.2) g/dL Albumin (3.5-5.0) g/dL Urine Color Yellow Urine Appearance Clear (Clear) Urine pH 6.5 (5.0-8.0) Ur Specific [place] 1.016 (1.001-1.035) Urine Protein Negative (Negative) Urine Glucose (UA) Negative (Negative) Urine Ketones Negative (Negative) Urine Blood Negative (Negative) Urine Nitrite Negative (Negative) Urine Bilirubin Negative (Negative) Urine Urobilinogen <2.0 (<2.0) mg/dL Ur Leukocyte Esterase Negative (Negative) - Radiology Data Radiology results: image reviewed (Chest x-ray shows some underlying COPD I. Enlargement of the cardiomediastinal silhouette) Disposition Clinical Impression: Weakness Disposition: ADMITTED IP TO THIS HOSP Is patient prescribed a controlled substance at d/c from ED?: No Referrals: Eloise Ozuna MD [Primary Care Provider] - 1-2 days Decision Time: 10:33
[2019-10-13 09:05] LABS: Appearance,Urine Clear (Clear); Bilirubin,Urine Negative (Negative); Blood,Urine Negative (Negative); Color,Urine Yellow; Glucose,Urine (UA) Negative (Negative); Ketones,Urine Negative (Negative); Leukocyte Esterase,Urine Negative (Negative); Nitrite,Urine Negative (Negative); PH, Urine 6.5 (5.0-8.0); Protein,Urine Negative (Negative); Specific Gravity,Urine 1.016 (1.001-1.035); Urobilinogen,Urine <2.0 mg/dL (<2.0)
[2019-10-13 09:08] LABS: Basophils # (A) 0.1 k/uL (0-0.2); Basophils % (A) 1 %; Eosinophils # (A) 0.1 k/uL (0-0.7); Eosinophils % (A) 1 %; HCT 38.3 % (39.0-53.0); HGB 12.7 gm/dL (13.0-17.5); Lymphocytes # (A) 1.7 k/uL (1.0-4.8); Lymphocytes % (A) 16 %; MCH 31.2 pg (25.0-35.0); MCHC 33.3 g/dL (31.0-37.0); MCV 93.7 fL (80.0-100.0); Monocytes # (A) 0.5 k/uL (0-1.0); Monocytes % (A) 4 %; Neutrophils # (A) 8.5 k/uL (1.3-7.7); Neutrophils % (A) 77 %; Platelet Count 254 k/uL (150-450); RBC 4.09 m/uL (4.30-5.90); RDW 14.1 % (11.5-15.5); WBC 11.1 k/uL (3.8-10.6)
[2019-10-13 09:15] LABS: Albumin 3.4 g/dL (3.5-5.0); Calcium 9.1 mg/dL (8.4-10.2); Potassium 4.1 mmol/L (3.5-5.1); Total Bilirubin 0.7 mg/dL (0.2-1.3); Total Protein 6.6 g/dL (6.3-8.2)
[2019-10-13 09:16] LABS: Partial Thromboplastin Time 23.8 sec (22.0-30.0)
--- NOTE | 2019-10-13 09:18 | XR ---
EXAMINATION TYPE: XR chest 2V DATE OF EXAM: 10/13/2019 COMPARISON: 09/09/2019 HISTORY: Weakness TECHNIQUE: Frontal and lateral views of the chest are obtained. FINDINGS: Chronic interstitial prominence throughout. There is no focal air space opacity, pleural e ffusion, or pneumothorax seen. There is pulmonary hyperinflation and flattening the diaphragms on la teral view relates underlying COPD. The cardiac silhouette size is enlarged with tortuosity of the de scending thoracic aorta and possible aneurysmal dilatation is seen on the prior. The osseous struct ures are intact. Mild to moderate degenerative changes of the spine. IMPRESSION: 1. Underlying COPD. 2. Enlarged cardiomediastinal silhouette and possible thoracic aortic aneurysm as seen on the prior.
[2019-10-13] MEDS ORDERED: NALOXONE 0.4 MG/ML 1 ML VIAL IV PRN (10:33)
[2019-10-13] MEDS ORDERED: ACETAMINOPHEN TAB 325 MG TAB PO PRN (12:59)
--- NOTE | 2019-10-13 13:14 | P.HPIM ---
History of Present Illness H&P Date: 10/13/19 Chief Complaint: Increased weakness This is an 89-year-old male patient who presented to the ER with complaints of increased weakness with falls. Patient was discharged from [facility] rehab on Sunday home with and son. Per patient's son at bedside patient was doing all right but became increasingly weak yesterday. Patient denies any specific pain to joint patient denies hitting his head. 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 During previous hospitalization patient was evaluated by neurology, oncology and interventional radiology. Only recommendation at that time was possible neurosurgical evaluation for resection patient and family declined. Patient is maintained on Decadron to help with edema associated with meningioma. Additional medical history includes history of atrial fibrillation maintained on Xarelto, BPH and recent UTI currently getting treated with Cipro. Troponin 0.055. Cardiology services will be consulted. Serial troponins ordered. PT OT and social work will be consulted for discharge planning patient will likely need placement. Family is at bedside QUESTIONS answered. At this time patient denies any chest pain or shortness of breath. Review of Systems Please refer to HPI otherwise unremarkable Past Medical History Past Medical History: Atrial Fibrillation, Prostate Disorder, Skin Disorder Additional Past Medical History / Comment(s): BPH; CARDIAC DYSRHTYMIA NOS; CERVICAL RADICULOPATHY; ROSACEA; BENIGN ESSENTIAL HYPERTENSION; ATRIAL FIBRILLATION; MICROSCOPIC HEMATURIA; SEE CHART REPORT FROM [facility] OFFICE. History of Any Multi-Drug Resistant Organisms: None Reported Past Surgical History: Orthopedic Surgery Additional Past Surgical History / Comment(s): left ankle fx repair, cataract removal Past Anesthesia/Blood Transfusion Reactions: No Reported Reaction Past Psychological History: No Psychological Hx Reported Smoking Status: Never smoker Past Alcohol Use History: None Reported Past Drug Use History: None Reported - Past Family History Father Family Medical History: Prostate Disorder Additional Family Medical History / Comment(s): MALIGNANT TUMOR OF PROSTATE Mother Family Medical History: Diabetes Mellitus Additional Family Medical History / Comment(s): DM II Medications and Allergies Home Medications Medication Instructions Recorded Confirmed Type Metoprolol Tartrate [Lopressor] 12.5 mg PO DAILY 09/09/19 10/13/19 History Potassium Chloride ER [K-Dur 10] 10 meq PO DAILY 09/09/19 10/13/19 History Rivaroxaban [Xarelto] 15 mg PO W/SUPPER 09/09/19 10/13/19 History Tamsulosin [Flomax] 0.4 mg PO BID 09/09/19 10/13/19 History Viactiv [id number] 2 tab PO BID 09/09/19 10/13/19 History Chewable Tablet Furosemide [Lasix] 20 mg PO DAILY tab 09/17/19 10/13/19 Rx Ciprofloxacin HCl [Cipro] 250 mg PO Q12HR 10/13/19 10/13/19 History Dexamethasone [Decadron] 4 mg PO DAILY 10/13/19 10/13/19 History Allergies Allergy/AdvReac Type Severity Reaction Status Date / Time No Known Allergies Allergy Verified 10/13/19 10:38 Physical Exam Vitals: Vital Signs Temp Pulse Resp BP Pulse Ox 10/13/19 12:30 93 18 118/69 98 10/13/19 10:44 101 H 19 107/65 99 10/13/19 08:28 97.9 F 127 H 18 98/72 97 Intake and Output 10/12/19 10/13/19 10/13/19 22:59 06:59 14:59 Other: Weight 108.862 kg Head normocephalic, left scalp mass, known meningioma Neck supple Lungs clear to auscultation bilaterally no wheezing or crackles Heart irregular heart rate. Known A. fib Abdomen is soft nontender nondistended positive bowel sounds no hepatosplenomegaly Extremities +3 peripheral edema Neuro alert and orientated to 3 Results CBC & Chem 7: 10/13/19 08:40 10/13/19 08:40 Labs: Abnormal Lab Results - Last 24 Hours (Table) 10/13/19 10/13/19 10/13/19 Range/Units 08:40 08:40 08:40 WBC 11.1 H (3.8-10.6) k/uL RBC 4.09 L (4.30-5.90) m/uL Hgb 12.7 L (13.0-17.5) gm/dL Hct 38.3 L (39.0-53.0) % Neutrophils # 8.5 H (1.3-7.7) k/uL BUN 26 H (9-20) mg/dL Glucose 100 H (74-99) mg/dL Troponin I 0.055 H* (0.000-0.034) ng/mL Albumin 3.4 L (3.5-5.0) g/dL Assessment and Plan Assessment: 1. Increased weakness and falls likely secondary to known meningioma. PT OT consulted 2. Intracranial and extracranial mass positive for meningioma. 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 Patient was evaluated by oncology, neurology and interventional radiology during previous hospital stay. Only recommendation at that time was possible outpatient neurosurgical consult for resection the patient and family declined. Patient is maintained on Decadron for symptomatic management 3. Recent urinary tract infection. Patient currently managed on Cipro 4. Increased edema to lower extremities. Will order venous Doppler to rule out DVT 5. Elevated troponin. Cardiology services will be consulted. Serial troponins ordered 6. History of BPH. Patient attained on Flomax 7. History of atrial fibrillation. Patient maintained on Lopressor and Xarelto DVT prophylaxis Xarelto. GI prophylaxis Pepcid Cardiology services consulted Venous Doppler to rule out DVT ordered Social work PT and OT consulted for discharge planning Time with Patient: Greater than 30 (Greater than 60% of the total time spent in counseling and coordination of care. I performed an examination of the patient and discussed their management with the Nurse Practitioner. I have reviewed the Nurse Practitioner's notes and agree with the documented findings and plan of care)
--- NOTE | 2019-10-13 14:46 | US ---
EXAMINATION TYPE: US venous doppler duplex LE DATE OF EXAM: 10/13/2019 1:54 PM COMPARISON: NONE CLINICAL HISTORY: r/o DVT. Edema bilateral legs, patient on Xarelto due to cardiac issues SIDE PERFORMED: bilateral TECHNIQUE: The lower extremity deep venous system is examined utilizing real time linear array sonog madalyn with graded compression, doppler sonography and color-flow sonography. VESSELS IMAGED: External Iliac Vein (EIV) Common Femoral Vein Deep Femoral Vein Greater Saphenous Vein * Femoral Vein Popliteal Vein Small Saphenous Vein * Proximal Calf Veins (* superficial vessels) Technical limitations due to large amount of soft tissue edema Right Leg: No evidence of DVT as visualized. Complex anechoic area right popliteal fossa = 6.1 x 1.6 x 2.8cm, probable Bakers cyst Left Leg: No evidence of DVT as visualized. complex anechoic area left popliteal fossa = 4.4 x 1.1 x 2.9cm, probable Bowers's cyst Grayscale, color doppler, spectral doppler imaging performed of the deep veins of the lower extremiti es. There is normal flow, compressibility, vascular waveforms. IMPRESSION: No sonographic evidence of deep venous thrombosis within either the bilateral lower extr emities. 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
[2019-10-13] MEDS ORDERED: METOPROLOL TARTRATE 12.5 MG TAB PO STA (19:52)
[2019-10-13] MEDS: SODIUM CHLORIDE 0.9% 1,000 ML IV SCH (20:11)
[2019-10-13] MEDS: TAMSULOSIN 0.4 MG CAP.ER.24H PO SCH (20:27)
[2019-10-13] MEDS: RIVAROXABAN 15 MG TAB PO SCH (20:27)
[2019-10-13] MEDS: CALCIUM CARB-VIT D 500MG-200UN 1 EACH TAB PO SCH (20:27)
[2019-10-13] MEDS: CIPROFLOXACIN HCL 250 MG TAB PO SCH (20:27)
[2019-10-13] MEDS ORDERED: DILTIAZEM 125 MG in SODIUM CHLORIDE 0.9% 100 ML IV SCH (20:45)
[2019-10-14 06:36] LABS: Basophils # (A) 0.1 k/uL (0-0.2); Basophils % (A) 1 %; Eosinophils # (A) 0.1 k/uL (0-0.7); Eosinophils % (A) 1 %; HCT 36.5 % (39.0-53.0); HGB 11.7 gm/dL (13.0-17.5); Lymphocytes # (A) 1.1 k/uL (1.0-4.8); Lymphocytes % (A) 13 %; MCH 30.2 pg (25.0-35.0); MCHC 32.1 g/dL (31.0-37.0); MCV 94.3 fL (80.0-100.0); Monocytes # (A) 0.4 k/uL (0-1.0); Monocytes % (A) 4 %; Neutrophils # (A) 6.7 k/uL (1.3-7.7); Neutrophils % (A) 80 %; Platelet Count 223 k/uL (150-450); RBC 3.87 m/uL (4.30-5.90); RDW 14.3 % (11.5-15.5); WBC 8.4 k/uL (3.8-10.6)
[2019-10-14 06:46] LABS: Calcium 8.8 mg/dL (8.4-10.2); Potassium 4.5 mmol/L (3.5-5.1); Total Bilirubin 0.8 mg/dL (0.2-1.3)
[2019-10-14] MEDS ORDERED: FUROSEMIDE 10 MG/ML 4 ML VIAL IV STA (08:34)
--- NOTE | 2019-10-14 08:35 | P.CRDCN ---
History of Present Illness Consult date: 10/14/19 Requesting physician: Eloise Ozuna Consult reason: atrial fibrillation Chief complaint: Weakness and falls History of present illness: This is an 89-year-old gentleman who follows with Dr. 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 Recurrent UTIs. Recently treated with Cipro. He presents to the hospital on this occasion with severe weakness and frequent falls. According to the patient he states that he fell at least 7 times. A cardiology consultation was requested for atrial fibrillation as well as abnormality in troponin. Patient denies having any chest discomfort this morning or in the past couple of weeks. He did have an echocardiogram with Doppler study performed in August 2019 which revealed a normal left ventricular systolic function. As x-ray on presentation here showed underlying COPD, enlarged cardiomediastinal silhouette and possible thoracic aortic aneurysm as seen on prior. His EKG on presentation here showed atrial fibril lation with a rapid ventricular response. Venous duplex study of bilateral lower extremities did not reveal any evidence of a DVT in either lower extremities. I pressure on arrival here 98/70, heart rate 127, 97% on room air, afebrile. Blood cell count 11.1 on admission, 8.4 this morning, hemoglobin 11.7, platelet count 223. Sodium 135, potassium 4.5, BUN 24, creatinine 0.8. Troponins 0.05, 0.05, 0.05. BNP level 2710. At the time of my examination this morning, patient complains of feeling extremely tired, he does appear also to be mildly short of breath. Past Medical History Past Medical History: Atrial Fibrillation, Prostate Disorder, Skin Disorder Additional Past Medical History / Comment(s): BPH; CARDIAC DYSRHTYMIA NOS; CERVICAL RADICULOPATHY; ROSACEA; BENIGN ESSENTIAL HYPERTENSION; ATRIAL FIBRILLATION; MICROSCOPIC HEMATURIA; SEE CHART REPORT FROM [facility]. History of Any Multi-Drug Resistant Organisms: None Reported Past Surgical History: Orthopedic Surgery Additional Past Surgical History / Comment(s): left ankle fx repair, cataract removal Past Anesthesia/Blood Transfusion Reactions: No Reported Reaction Past Psychological History: No Psychological Hx Reported Smoking Status: Never smoker Past Alcohol Use History: None Reported Past Drug Use History: None Reported - Past Family History Father Family Medical History: Prostate Disorder Additional Family Medical History / Comment(s): MALIGNANT TUMOR OF PROSTATE Mother Family Medical History: Diabetes Mellitus Additional Family Medical History / Comment(s): DM II Medications and Allergies Home Medications Medication Instructions Recorded Confirmed Type Metoprolol Tartrate [Lopressor] 12.5 mg PO DAILY 09/09/19 10/13/19 History Potassium Chloride ER [K-Dur 10] 10 meq PO DAILY 09/09/19 10/13/19 History Rivaroxaban [Xarelto] 15 mg PO W/SUPPER 09/09/19 10/13/19 History Tamsulosin [Flomax] 0.4 mg PO BID 09/09/19 10/13/19 History Viactiv [id number] 2 tab PO BID 09/09/19 10/13/19 History Chewable Tablet Furosemide [Lasix] 20 mg PO DAILY tab 09/17/19 10/13/19 Rx Ciprofloxacin HCl [Cipro] 250 mg PO Q12HR 10/13/19 10/13/19 History Dexamethasone [Decadron] 4 mg PO DAILY 10/13/19 10/13/19 History Allergies Allergy/AdvReac Type Severity Reaction Status Date / Time No Known Allergies Allergy Verified 10/13/19 10:38 Physical Exam Vitals: Vital Signs Temp Pulse Pulse Resp BP BP Pulse Ox 10/14/19 04:00 98.9 F 100 16 122/59 94 L 10/13/19 23:21 98.3 F 97 20 136/74 96 10/13/19 20:00 141 H 17 105/77 97 10/13/19 19:21 98.1 F 136 H 18 121/87 98 10/13/19 18:00 107 H 18 105/81 97 10/13/19 14:20 110 H 18 115/94 98 10/13/19 12:30 93 18 118/69 98 10/13/19 10:44 101 H 19 107/65 99 10/13/19 08:28 97.9 F 127 H 18 98/72 97 Intake and Output 10/13/19 10/14/19 10/14/19 22:59 06:59 14:59 Output Total 100 100 Balance -100 -100 Output: Urine 100 100 Other: Voiding Method Incontinent # Voids 1 Weight 167.5 kg PHYSICAL EXAMINATION: GENERAL: 89-year-old gentleman in no acute distress at the time of my examination HEENT: Head is atraumatic, normocephalic. Pupils equal, round. Sclera anicteric. Conjunctiva are clear. Mucous membranes of the mouth are moist. Neck is supple. There is mildly elevated jugular venous pressure. HEART EXAMINATION: Heart S1, S2 normal. No murmur or gallop heard. CHEST EXAMINATION: Lungs are clear with diminished air entry to the bases bilaterally ABDOMEN: Soft, obese, nontender. Bowel sounds are heard. No organomegaly noted. EXTREMITIES: 2+ peripheral pulses with 1-2+ evidence of peripheral edema and no calf tenderness noted. NEUROLOGIC patient is awake, alert and oriented 3 . . Results 10/14/19 05:32 10/14/19 05:32 Cardiac Enzymes 10/13/19 10/13/19 10/13/19 Range/Units 08:40 08:40 14:24 AST 28 (17-59) U/L Troponin I 0.055 H* 0.054 H* (0.000-0.034) ng/mL 10/13/19 10/14/19 Range/Units 20:31 05:32 AST 23 (17-59) U/L Troponin I 0.052 H* (0.000-0.034) ng/mL Coagulation 10/13/19 Range/Units 08:40 PT 11.0 (9.0-12.0) sec APTT 23.8 (22.0-30.0) sec CBC 10/13/19 10/14/19 Range/Units 08:40 05:32 WBC 11.1 H 8.4 (3.8-10.6) k/uL RBC 4.09 L 3.87 L (4.30-5.90) m/uL Hgb 12.7 L 11.7 L (13.0-17.5) gm/dL Hct 38.3 L 36.5 L (39.0-53.0) % Plt Count 254 223 (150-450) k/uL Comprehensive Metabolic Panel 10/13/19 10/14/19 Range/Units 08:40 05:32 Sodium 138 135 L (137-145) mmol/L Potassium 4.1 4.5 (3.5-5.1) mmol/L Chloride 103 101 (98-107) mmol/L Carbon Dioxide 27 30 (22-30) mmol/L BUN 26 H 24 H (9-20) mg/dL Creatinine 0.86 0.84 (0.66-1.25) mg/dL Glucose 100 H 96 (74-99) mg/dL Calcium 9.1 8.8 (8.4-10.2) mg/dL AST 28 23 (17-59) U/L ALT 26 21 (4-49) U/L Alkaline Phosphatase 60 59 (38-126) U/L Total Protein 6.6 6.0 L (6.3-8.2) g/dL Albumin 3.4 L 3.0 L (3.5-5.0) g/dL Current Medications Generic Name Dose Route Start Last Admin Trade Name Freq PRN Reason Stop Dose Admin Acetaminophen 650 mg 10/13/19 12:59 Tylenol Tab PO Q6HR PRN Fever and/ or Pain Calcium Carbonate 2 each 10/13/19 21:00 10/13/19 20:27 Oscal 500+D PO 2 each BID HARVINDER Administration Ciprofloxacin 250 mg 10/13/19 21:00 10/13/19 20:27 Cipro PO 250 mg Q12HR HARVINDER Administration Dexamethasone 4 mg 10/14/19 09:00 Hexadrol PO DAILY [facility] Famotidine 20 mg 10/14/19 09:00 Pepcid PO DAILY HARVINDER Furosemide 20 mg 10/14/19 09:00 Lasix PO DAILY [facility] Sodium Chloride 1,000 mls @ 20 mls/hr 10/13/19 10:45 10/13/19 20:11 Saline 0.9% IV Not Given .Q24H HARVINDER Diltiazem HCl 125 mg/ Sodium 125 mls @ 5 mls/hr 10/13/19 20:45 10/13/19 21:08 Chloride IV 5 mg/hr .Q24H HARVINDER 5 mls/hr Administration 5 MG/HR Metoprolol Tartrate 12.5 mg 10/14/19 09:00 Lopressor PO DAILY [facility] Naloxone HCl 0.2 mg 10/13/19 10:33 Narcan IV Q2M PRN Opioid Reversal Potassium Chloride 10 meq 10/14/19 09:00 K-Dur 10 PO DAILY [facility] Rivaroxaban 15 mg 10/13/19 17:30 10/13/19 20:27 Xarelto PO 15 mg W/SUPPER HARVINDER Administration Tamsulosin HCl 0.4 mg 10/13/19 21:00 10/13/19 20:27 Flomax PO 0.4 mg BID HARVINDER Administration Intake and Output 10/13/19 10/14/19 10/14/19 22:59 06:59 14:59 Output Total 100 100 Balance -100 -100 Output: Urine 100 100 Other: Voiding Method Incontinent # Voids 1 Weight 167.5 kg 10/14/19 05:32 10/14/19 05:32 EKG Interpretations (text) EKG shows atrial fibrillation with a rapid ventricular response Assessment and Plan Plan: Assessment and plan #1 increased weakness with associated falls #2 intracranial and extracranial mass positive for meningioma. Biopsy was completed during his previous hospitalization showing meningioma, a grade 1 meningiothelial type #3 atrial fibrillation with rapid ventricular response, persistent, on Xarelto for anticoagulation #4 recurrent urinary tract infections #5 abnormality in troponin with no significant rise and fall pattern, not suggestive of acute coronary syndrome #6 history of BPH #7 hypertension Plan Patient had a recent echo performed last month which revealed an ejection fraction of 50-55%. We will not repeat an echo on this admission. We will discontinue the IV Cardizem drip and increase the dose of beta ortiz. Continue anticoagulation in the form of Xarelto. Check a TSH level. A one-time dose of IV Lasix Further recommendations to follow. DNP note has been reviewed, I agree with a documented findings and plan of care. Patient was seen and examined.
[2019-10-14] MEDS ORDERED: METOPROLOL TARTRATE 12.5 MG TAB PO SCH (09:00)
[2019-10-14] MEDS ORDERED: FUROSEMIDE 20 MG TAB PO SCH (09:00)
[2019-10-14] MEDS: POTASSIUM CHLORIDE ER 10 MEQ TAB.ER.PRT PO SCH (09:14)
[2019-10-14] MEDS: METOPROLOL TARTRATE 25 MG TAB PO SCH ×2 (09:14→19:22)
[2019-10-14] MEDS: FAMOTIDINE 20 MG TAB PO SCH (09:14)
[2019-10-14] MEDS: TAMSULOSIN 0.4 MG CAP.ER.24H PO SCH ×2 (09:14→19:22)
[2019-10-14] MEDS: CALCIUM CARB-VIT D 500MG-200UN 1 EACH TAB PO SCH ×2 (09:14→19:24)
[2019-10-14] MEDS: DEXAMETHASONE 4 MG TAB PO SCH (09:15)
[2019-10-14] MEDS: CIPROFLOXACIN HCL 250 MG TAB PO SCH ×2 (09:15→19:22)
--- NOTE | 2019-10-14 10:09 | P.PN ---
Subjective Progress Note Date: 10/14/19 This is an 89-year-old male patient who presented to the ER with complaints of increased weakness with falls. Patient was discharged from [facility] rehab on Sunday home with and son. Per patient's son at bedside patient was doing all right but became increasingly weak yesterday. Patient denies any specific pain to joint patient denies hitting his head. 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 During previous hospitalization patient was evaluated by neurology, oncology and interventional radiology. Only recommendation at that time was possible neurosurgical evaluation for resection patient and family declined. Patient is maintained on Decadron to help with edema associated with meningioma. Additional medical history includes history of atrial fibrillation maintained on Xarelto, BPH and recent UTI currently getting treated with Cipro. Troponin 0.055. Cardiology services will be consulted. Serial troponins ordered. PT OT and social work will be consulted for discharge planning patient will likely ne ed placement. Family is at bedside QUESTIONS answered. At this time patient denies any chest pain or shortness of breath. On 10/14/2019 patient alert and oriented 3. Patient was started on Cardizem drip yesterday for elevated heart rate with known A. fib heart rate dropping to 30s Cardizem DC'd per cardiology. Beta ortiz will be increased per cardiology. Patient to receive 1 dose of IV Lasix. Previous EF 50-55%. Discussed case with case management in regards to placement per family request. At this time patient denies any chest pain. Patient denies shortness of breath. Patient denies nausea vomiting or diarrhea. Patient denies any urinary burning or frequency Objective - Vital Signs Vital signs: Vital Signs Temp 98.9 F 10/14/19 04:00 Pulse 100 10/14/19 04:00 Resp 16 10/14/19 04:00 BP 122/59 10/14/19 04:00 Pulse Ox 94 L 10/14/19 04:00 Intake & Output 10/13/19 10/14/19 10/14/19 18:59 06:59 18:59 Intake Total 120 Output Total 200 Balance -200 120 Weight 108.862 kg 167.5 kg Intake: Oral 120 Output: Urine 200 Other: Voiding Method Incontinent # Voids 1 - Exam Head normocephalic, left scalp mass, known meningioma Neck supple Lungs clear to auscultation bilaterally no wheezing or crackles Heart irregular heart rate. Known A. fib Abdomen is soft nontender nondistended positive bowel sounds no hepatosplenomegaly Extremities +3 peripheral edema Neuro alert and orientated to 3 - Labs CBC & Chem 7: 10/14/19 05:32 10/14/19 05:32 Labs: Abnormal Lab Results - Last 24 Hours (Table) 10/13/19 10/13/19 10/14/19 Range/Units 14:24 20:31 05:32 RBC 3.87 L (4.30-5.90) m/uL Hgb 11.7 L (13.0-17.5) gm/dL Hct 36.5 L (39.0-53.0) % Sodium (137-145) mmol/L BUN (9-20) mg/dL Troponin I 0.054 H* 0.052 H* (0.000-0.034) ng/mL Total Protein (6.3-8.2) g/dL Albumin (3.5-5.0) g/dL 10/14/19 Range/Units 05:32 RBC (4.30-5.90) m/uL Hgb (13.0-17.5) gm/dL Hct (39.0-53.0) % Sodium 135 L (137-145) mmol/L BUN 24 H (9-20) mg/dL Troponin I (0.000-0.034) ng/mL Total Protein 6.0 L (6.3-8.2) g/dL Albumin 3.0 L (3.5-5.0) g/dL Assessment and Plan Assessment: 1. Increased weakness and falls likely secondary to known meningioma. PT OT consulted 2. Intracranial and extracranial mass positive for meningioma. 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 Patient was evaluated by oncology, neurology and interventional radiology during previous hospital stay. Only recommendation at that time was possible outpatient neurosurgical consult for resection the patient and family declined. Patient is maintained on Decadron for symptomatic management 3. Recent urinary tract infection. Patient currently managed on Cipro 4. Increased edema to lower extremities. 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 2-D echo completed during previous hospitalization showing EF of 50-55% 5. Elevated troponin. Cardiology services will be consulted. Serial troponins ordered. Per cardiology abnormality in troponin with no significant rise and fall pattern not suggestive acute coronary syndrome. 6. History of BPH. Patient maintained on Flomax 7. Atrial fibrillation with rapid ventricular response. Patient maintained on Lopressor and Xarelto. Patient was started on Cardizem drip per cardiology for heart rate decreasing to 30s and Cardizem DC'd. Patient's home dose of beta ortiz increased. Heart rate has improved. TSH level has been ordered DVT prophylaxis Xarelto. GI prophylaxis Pepcid Cardiology services consulted Social work PT and OT consulted for discharge planning I performed an examination of the patient and discussed their management with the Nurse Practitioner. I have reviewed the Nurse Practitioner's notes and agree with the documented findings and plan of care
[2019-10-14] MEDS: FUROSEMIDE 10 MG/ML 2 ML VIAL IV SCH ×3 (12:35→23:41)
[2019-10-14] MEDS: SODIUM CHLORIDE 0.9% 1,000 ML IV SCH (12:36)
[2019-10-14] MEDS: RIVAROXABAN 15 MG TAB PO SCH (16:56)
[2019-10-15 06:42] LABS: Basophils # (A) 0.1 k/uL (0-0.2); Basophils % (A) 2 %; Eosinophils % (A) 1 %; HCT 38.1 % (39.0-53.0); HGB 12.4 gm/dL (13.0-17.5); Lymphocytes % (A) 12 %; MCH 30.3 pg (25.0-35.0); MCHC 32.5 g/dL (31.0-37.0); Monocytes # (A) 0.4 k/uL (0-1.0); Monocytes % (A) 5 %; Neutrophils # (A) 6.8 k/uL (1.3-7.7); Neutrophils % (A) 80 %; Platelet Count 237 k/uL (150-450); RDW 14.1 % (11.5-15.5); WBC 8.5 k/uL (3.8-10.6)
[2019-10-15 06:49] LABS: Albumin 3.2 g/dL (3.5-5.0); Calcium 9.4 mg/dL (8.4-10.2); Potassium 3.9 mmol/L (3.5-5.1); Total Bilirubin 0.8 mg/dL (0.2-1.3); Total Protein 6.4 g/dL (6.3-8.2)
[2019-10-15] MEDS: CIPROFLOXACIN HCL 250 MG TAB PO SCH ×2 (08:34→22:29)
[2019-10-15] MEDS: METOPROLOL TARTRATE 25 MG TAB PO SCH ×3 (08:34→21:03)
[2019-10-15] MEDS: DEXAMETHASONE 4 MG TAB PO SCH (08:34)
[2019-10-15] MEDS: POTASSIUM CHLORIDE ER 10 MEQ TAB.ER.PRT PO SCH (08:34)
[2019-10-15] MEDS: CALCIUM CARB-VIT D 500MG-200UN 1 EACH TAB PO SCH ×2 (08:34→22:29)
[2019-10-15] MEDS: FAMOTIDINE 20 MG TAB PO SCH (08:35)
[2019-10-15] MEDS: TAMSULOSIN 0.4 MG CAP.ER.24H PO SCH ×2 (08:35→21:03)
[2019-10-15] MEDS: FUROSEMIDE 10 MG/ML 2 ML VIAL IV SCH (08:35)
[2019-10-15] MEDS: FUROSEMIDE 20 MG TAB PO SCH (08:40)
[2019-10-15] MEDS: SODIUM CHLORIDE 0.9% 1,000 ML IV SCH (08:44)
--- NOTE | 2019-10-15 10:11 | P.PN ---
Subjective Progress Note Date: 10/15/19 This is an 89-year-old male patient who presented to the ER with complaints of increased weakness with falls. Patient was discharged from [facility] rehab on Sunday home with and son. Per patient's son at bedside patient was doing all right but became increasingly weak yesterday. Patient denies any specific pain to joint patient denies hitting his head. 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 During previous hospitalization patient was evaluated by neurology, oncology and interventional radiology. Only recommendation at that time was possible neurosurgical evaluation for resection patient and family declined. Patient is maintained on Decadron to help with edema associated with meningioma. Additional medical history includes history of atrial fibrillation maintained on Xarelto, BPH and recent UTI currently getting treated with Cipro. Troponin 0.055. Cardiology services will be consulted. Serial troponins ordered. PT OT and social work will be consulted for discharge planning patient will likely ne ed placement. Family is at bedside QUESTIONS answered. At this time patient denies any chest pain or shortness of breath. On 10/14/2019 patient alert and oriented 3. Patient was started on Cardizem drip yesterday for elevated heart rate with known A. fib heart rate dropping to 30s Cardizem DC'd per cardiology. Beta ortiz will be increased per cardiology. Patient to receive 1 dose of IV Lasix. Previous EF 50-55%. Discussed case with case management in regards to placement per family request. At this time patient denies any chest pain. Patient denies shortness of breath. Patient denies nausea vomiting or diarrhea. Patient denies any urinary burning or frequency On 10/15/2019 patient is alert and oriented 3. Patient having some increased shortness of breath. Will order chest x-ray. Patient received 1 dose of IV Lasix yesterday cardiology services are following. Heart rate has improved. Beta ortiz increased per cardiology services. Social calling for discharge planning. Patient denies chest pain. Patient reports improvement with headaches. Patient denies nausea vomiting or diarrhea. Patient denies any urinary burning or frequency. Objective - Vital Signs Vital signs: Vital Signs Temp 97.7 F 10/15/19 08:00 Pulse 88 10/15/19 08:00 Resp 18 10/15/19 08:00 BP 111/57 10/15/19 08:00 Pulse Ox 94 L 10/15/19 08:00 Intake & Output 10/14/19 10/15/19 10/15/19 18:59 06:59 18:59 Intake Total 700 240 Output Total 1000 2200 Balance -300 -2200 240 Weight 161.5 kg Intake: Intake, IV Titration 100 Amount Sodium Chloride 0.9% 1, 100 000 ml @ 20 mls/hr IV . Q24H HARVINDER Rx#:[id number] Oral 600 240 Output: Urine 1000 2200 Other: Voiding Method Incontinent Incontinent Incontinent # Voids 3 2 - Exam Head normocephalic, left scalp mass, known meningioma Neck supple Lungs clear to auscultation bilaterally no wheezing or crackles Heart irregular heart rate. Known A. fib Abdomen is soft nontender nondistended positive bowel sounds no hepatosplenomegaly Extremities +3 peripheral edema Neuro alert and orientated to 3 - Labs CBC & Chem 7: 10/15/19 06:00 10/15/19 06:00 Labs: Abnormal Lab Results - Last 24 Hours (Table) 10/15/19 10/15/19 Range/Units 06:00 06:00 RBC 4.10 L (4.30-5.90) m/uL Hgb 12.4 L (13.0-17.5) gm/dL Hct 38.1 L (39.0-53.0) % Sodium 135 L (137-145) mmol/L BUN 31 H (9-20) mg/dL Glucose 113 H (74-99) mg/dL Albumin 3.2 L (3.5-5.0) g/dL Assessment and Plan Assessment: 1. Increased weakness and falls likely secondary to known meningioma. PT OT consulted 2. Intracranial and extracranial mass positive for meningioma. 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 Patient was evaluated by oncology, neurology and interventional radiology during previous hospital stay. Only recommendation at that time was possible outpatient neurosurgical consult for resection the patient and family declined. Patient is maintained on Decadron for symptomatic management 3. Recent urinary tract infection. Patient currently managed on Cipro 4. Increased edema to lower extremities. 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 2-D echo completed during previous hospitalization showing EF of 50-55%. Patient received 1 dose of IV Lasix on 10/14/2019 maintained on home dose of Lasix per cardiology 5. Elevated troponin. Cardiology services will be consulted. Serial troponins ordered. Per cardiology abnormality in troponin with no significant rise and fall pattern not suggestive acute coronary syndrome. 6. History of BPH. Patient maintained on Flomax 7. Atrial fibrillation with rapid ventricular response. Patient maintained on Lopressor and Xarelto. Patient was started on Cardizem drip per cardiology for heart rate decreasing to 30s and Cardizem DC'd. Patient's home dose of beta ortiz increased. Heart rate has improved. TSH level 2.850 DVT prophylaxis Xarelto. GI prophylaxis Pepcid Cardiology services consulted Social work PT and OT consulted for discharge planning Chest x-ray has been ordered I performed an examination of the patient and discussed their management with the Nurse Practitioner. I have reviewed the Nurse Practitioner's notes and agree with the documented findings and plan of care
--- NOTE | 2019-10-15 12:49 | PN ---
PROGRESS NOTE Mr. Landry has chronic atrial fib. Ventricular rate is fairly well controlled. He also has mild congestive heart failure that has improved. He is feeling better. No chest pain, shortness of breath is stable. Vitals are stable. JVD 1 cm. No carotid bruit. S1, S2 heard normally, irregular rate and rhythm noted. Short systolic murmur noted. Lungs reveal improved air entry. Abdomen and lower extremity exam unchanged. Plan is to increase metoprolol tartrate to 25 mg t.i.d., increase activity and patient can be discharged. MMODL / IJN: [id number] /
--- NOTE | 2019-10-15 13:52 | XR ---
EXAMINATION TYPE: XR chest 2V DATE OF EXAM: 10/15/2019 COMPARISON: 10/13/2019 INDICATION: Increasing shortness of breath TECHNIQUE: Frontal and lateral views of the chest are obtained. FINDINGS: The heart size is upper limits of normal. The pulmonary vasculature is normal. The lungs are clear. There is hyperinflation and flattening the diaphragms and an increased AP diame ter compatible COPD IMPRESSION: 1. COPD. 2. No acute pulmonary process. 3. Heart size is at the upper limits of normal.
[2019-10-15] MEDS: RIVAROXABAN 15 MG TAB PO SCH (16:11)
[2019-10-16] MEDS: POTASSIUM CHLORIDE ER 10 MEQ TAB.ER.PRT PO SCH (07:45)
[2019-10-16] MEDS: METOPROLOL TARTRATE 25 MG TAB PO SCH ×2 (07:45→14:58)
[2019-10-16] MEDS: CALCIUM CARB-VIT D 500MG-200UN 1 EACH TAB PO SCH (07:45)
[2019-10-16] MEDS: FUROSEMIDE 20 MG TAB PO SCH (07:46)
[2019-10-16] MEDS: TAMSULOSIN 0.4 MG CAP.ER.24H PO SCH (07:46)
[2019-10-16] MEDS: DEXAMETHASONE 4 MG TAB PO SCH (07:46)
[2019-10-16] MEDS: FAMOTIDINE 20 MG TAB PO SCH (07:46)
[2019-10-16] MEDS: CIPROFLOXACIN HCL 250 MG TAB PO SCH (07:46)
[2019-10-16 08:58] LABS: Basophils # (A) 0.1 k/uL (0-0.2); Basophils % (A) 1 %; Eosinophils # (A) 0.1 k/uL (0-0.7); Eosinophils % (A) 1 %; HGB 12.9 gm/dL (13.0-17.5); Lymphocytes # (A) 1.6 k/uL (1.0-4.8); Lymphocytes % (A) 17 %; MCH 31.4 pg (25.0-35.0); MCHC 33.9 g/dL (31.0-37.0); MCV 92.7 fL (80.0-100.0); Mean Platelet Volume 7.8; Monocytes # (A) 0.4 k/uL (0-1.0); Monocytes % (A) 4 %; Neutrophils # (A) 7.4 k/uL (1.3-7.7); Neutrophils % (A) 77 %; Platelet Count 286 k/uL (150-450); RBC 4.11 m/uL (4.30-5.90); RDW 14.1 % (11.5-15.5); WBC 9.6 k/uL (3.8-10.6)
[2019-10-16 09:29] LABS: Albumin 3.3 g/dL (3.5-5.0); Calcium 9.2 mg/dL (8.4-10.2); Total Bilirubin 0.7 mg/dL (0.2-1.3); Total Protein 6.3 g/dL (6.3-8.2)
[2019-10-16] MEDS: SODIUM CHLORIDE 0.9% 1,000 ML IV SCH (10:30)
[2019-10-16 12:48] VITALS: BP 116/67; PULSE 75; RESP 16; TEMP 98
--- NOTE | 2019-10-16 14:25 | P.DS ---
Providers Date of admission: 10/13/19 10:33 Expected date of discharge: 10/16/19 Attending physician: Eloise Ozuna Consults: 10/13/19 12:07 Consult Physician Routine Consulting Provider: Roseline Mittal Consult Reason/Comments: elevated troponin, known afib Do you want consulting provider notified?: Yes Primary care physician: Eloise Ozuna [facility] Course: Discharge diagnosis 1. Increased weakness and falls likely secondary to known meningioma. PT OT consulted 2. Intracranial and extracranial mass positive for meningioma. 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 Patient was evaluated by oncology, neurology and interventional radiology during previous hospital stay. Only recommendation at that time was possible outpatient neurosurgical consult for resection the patient and family declined. Patient is maintained on Decadron for symptomatic management 3. Recent urinary tract infection. Patient currently managed on Cipro 4. Increased edema to lower extremities. 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 2-D echo completed during previous hospitalization showing EF of 50-55%. Patient received 1 dose of IV Lasix on 10/14/2019 maintained on home dose of Lasix per cardiology 5. Elevated troponin. Cardiology services will be consulted. Serial troponins ordered. Per cardiology abnormality in troponin with no significant rise and fall pattern not suggestive acute coronary syndrome. 6. History of BPH. Patient maintained on Flomax 7. Atrial fibrillation with rapid ventricular response. Patient maintained on Lopressor and Xarelto. Patient was started on Cardizem drip per cardiology for heart rate decreasing to 30s and Cardizem DC'd. Patient's home dose of beta ortiz increased. Heart rate has improved. TSH level 2.850. Patient cleared for discharge from cardiology standpoint Hospital course This is an 89-year-old male patient who presented to the ER with complaints of increased weakness with falls. Patient was discharged from [facility] rehab on Sunday home with and son. Per patient's son at bedside patient was doing all right but became increasingly weak yesterday. Patient denies any specific pain to joint patient denies hitting his head. 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 During previous hospitalization patient was evaluated by neurology, oncology and interventional radiology. Only recommendation at that time was possible neurosurgical evaluation for resection patient and family declined. Patient is maintained on Decadron to help with edema associated with meningioma. Additional medical history includes history of atrial fibrillation maintained on Xarelto, BPH and recent UTI currently getting treated with Cipro. Troponin 0.055. Cardiology services will be consulted. Serial troponins ordered. PT OT and social work will be consulted for discharge planning patient will likely need placement. Family is at bedside QUESTIONS answered. At this time patient denies any chest pain or shortness of breath. On 10/14/2019 patient alert and oriented 3. Patient was started on Cardizem drip yesterday for elevated heart rate with known A. fib heart rate dropping to 30s Cardizem DC'd per cardiology. Beta ortiz will be increased per cardiology. Patient to receive 1 dose of IV Lasix. Previous EF 50-55%. Discussed case with case management in regards to placement per family request. At this time patient denies any chest pain. Patient denies shortness of breath. Patient denies nausea vomiting or diarrhea. Patient denies any urinary burning or frequency On 10/15/2019 patient is alert and oriented 3. Patient having some increased shortness of breath. Will order chest x-ray. Patient received 1 dose of IV Lasix yesterday cardiology services are following. Heart rate has improved. Beta ortiz increased per cardiology services. Social calling for discharge planning. Patient denies chest pain. Patient reports improvement with headaches. Patient denies nausea vomiting or diarrhea. Patient denies any urinary burning or frequency. On 10/16/2019 patient alert and oriented 3. Patient has received prior off for discharge to [facility]. Repeat chest x-ray reviewed no signs of acute pulmonary process. Heart rate has improved beta ortiz has been increased and cardiology has cleared for discharge. At this time patient denies chest pain or shortness of breath. Patient denies nausea vomiting or diarrhea. Patient denies any urinary burning or frequency. Attempt was made to get a hold of patient's son Umer to update on discharge. No answer. I performed an examination of the patient and discussed their management with the Nurse Practitioner. I have reviewed the Nurse Practitioner's notes and agree with the documented findings and plan of care Patient Condition at Discharge: Stable Plan - Discharge Summary Discharge Rx Participant: No New Discharge Prescriptions: New Metoprolol Tartrate [Lopressor] 25 mg PO TID tab Acetaminophen Tab [Tylenol] 650 mg PO Q6HR PRN tab PRN Reason: Fever And/ Or Pain Continue Tamsulosin [Flomax] 0.4 mg PO BID Rivaroxaban [Xarelto] 15 mg PO W/SUPPER Potassium Chloride ER [K-Dur 10] 10 meq PO DAILY Viactiv [id number] Chewable Tablet 2 tab PO BID Furosemide [Lasix] 20 mg PO DAILY tab Dexamethasone [Decadron] 4 mg PO DAILY Ciprofloxacin HCl [Cipro] 250 mg PO Q12HR 3 Days #6 Discontinued Metoprolol Tartrate [Lopressor] 12.5 mg PO DAILY Discharge Medication List Potassium Chloride ER [K-Dur 10] 10 meq PO DAILY 09/09/19 [History] Rivaroxaban [Xarelto] 15 mg PO W/SUPPER 09/09/19 [History] Tamsulosin [Flomax] 0.4 mg PO BID 09/09/19 [History] Viactiv [id number] Chewable Tablet 2 tab PO BID 09/09/19 [History] Furosemide [Lasix] 20 mg PO DAILY tab 09/17/19 [Rx] Dexamethasone [Decadron] 4 mg PO DAILY 10/13/19 [History] Acetaminophen Tab [Tylenol] 650 mg PO Q6HR PRN tab 10/16/19 [Rx] Ciprofloxacin HCl [Cipro] 250 mg PO Q12HR 3 Days #6 10/16/19 [Rx] Metoprolol Tartrate [Lopressor] 25 mg PO TID tab 10/16/19 [Rx] Follow up Appointment(s)/Referral(s): Eloise Ozuna MD [Primary Care Provider] - 1-2 days Activity/Diet/Wound Care/Special Instructions: [facility] Diet heart healthy CBC and CMP within 7 days of admission Discharge Disposition: TRANSFER TO SNF/ECF
[2019-10-16] MEDS: RIVAROXABAN 15 MG TAB PO SCH (14:58)
--- NOTE | 2019-10-24 07:11 | CDI ---
Documentation Clarification Form Date: 10/24/2019 07:04:45 AM From: Nadia Duenas Phone: If you have a question about this query, please contact Nanda Wong [employer] at [phone] between 8am and 5pm. Admit Date: 10/13/2019 10:33:00 AM Patient Name: Grayson Landry Visit Number: [id number] Discharge Date: 10/16/2019 03:59:00 PM ATTENTION: The Clinical Documentation Specialists (CDI) and [facility] Coding Staff appreciate your assistance in clarifying documentation. Please respond to the clarification below the line at the bottom and electronically sign. The CDI & [facility] Coding staff will review the response and follow-up if needed. Please note: Queries are made part of the Legal Health Record. If you have any questions, please contact the author of this message via ITS. Dr. Sara Chávezdy Your PN 10/15 documents: "He also has mild CHF that has improved". Please clarify type of CHF. History/Risk Factors: persistent A fib, HTN VS/Pulse OX: 97% RA BNP: 2710 Chest X Ray:Heart size the upper limits of normal Treatment: IV Lasix In your professional opinion, can you please clarify the acuity and type of CHF if known? Systolic Heart Failure: Acute Chronic Acute on Chronic Diastolic Heart Failure: Acute Chronic Acute on Chronic Systolic & Diastolic Heart Failure: Acute Chronic Acute on Chronic Heart Failure Unable to Determine Other, please specify Unable to Determine MTDD
== END 2019-10-16 15:59 | DRG 55 ==
LOC: EC 08:27 → 3SCARD 10:33 → 6NMEDSUR 10-15 15:23
PROVIDERS: ADMIT Internal Medicine; ATTEND Internal Medicine
DX: D32.9 Benign neoplasm of meninges, unspecified (principal); I48.19 Other persistent atrial fibrillation; I11.0 Hypertensive heart disease with heart failure; I50.9 Heart failure, unspecified; J44.9 Chronic obstructive pulmonary disease, unspecified; N40.0 Benign prostatic hyperplasia without lower urinary tract symptoms; Z79.01 Long term (current) use of anticoagulants; Z79.899 Other long term (current) drug therapy; Z80.42 Family history of malignant neoplasm of prostate; Z83.3 Family history of diabetes mellitus; Z87.440 Personal history of urinary (tract) infections; R79.89 Other specified abnormal findings of blood chemistry; R29.6 Repeated falls; Z91.81 History of falling; M54.12 Radiculopathy, cervical region
CPT/HCPCS: 36415; 71046; 80053; 81003; 83605; 83880; 84443; 84484; 85025; 85610; 85730; 93005; 93970; 96361; 96365; 99285